=== PATIENT | male | born 1975 | race Caucasian/White ===

== ENCOUNTER 2022-11-09 18:34 | Emergency (ER) | payer OTHER ==
--- NOTE | 2022-11-09 18:59 | ER ---
Nurse's Notes [facility] Name: Chris Miranda Age: 47 yrs Sex: Male : 1975 Arrival Date: 11/09/2022 Time: 18:34 Bed 8 Private MD: Diagnosis: Other seizures Presentation: 11/09 18:35 Chief complaint: Patient states[facility] Associate sat him in a chair so he ll1 wouldn't fall. EMS states: FS 101. VSS. Postictal on scene. 20 G R hand. Coronavirus screen: Client denies travel out of the [place] in the last 14 days. At this time, the client does not indicate any symptoms associated with coronavirus-19. Ebola Screen: Patient denies travel to an Ebola-affected area in the 21 days before illness onset. Risk Assessment: Do you want to hurt yourself or someone else? Patient reports no desire to harm self or others. Onset of symptoms was November 09, 2022. 18:35 Method Of Arrival: EMS: [facility] ll1 18:35 Acuity: NUHA 3 ll1 Triage Assessment: 18:37 General: Appears in no apparent distress. Behavior is calm, cooperative, appropriate ll1 for age. Pain: Denies pain. Neuro: Reports seizure. Historical: - Allergies: 18:35 No Known Allergies; ll1 - Home Meds: 18:43 zonisamide 300 oral capsule 2 times per day [Active]; oxcarbazepine 300 mg oral tablet sc3 3 tabs TID [Active]; atorvastatin 10 mg oral tablet every evening [Active]; carvedilol 25 mg oral tablet 2 times per day [Active]; meloxicam 15 mg oral tablet once [Active]; - PMHx: 18:35 Seizure; ll1 - Immunization history:: Adult Immunizations up to date. - Social history:: Smoking status: Patient denies any tobacco usage or history of. Screenin:05 [facility] ED Fall Risk Assessment (Adult) History of falling in the last 3 months, sc3 including since admission No falls in past 3 months (0 pts) Confusion or Disorientation No (0 pts) Intoxicated or Sedated No (0 pts) Impaired Gait No (0 pts) Mobility Assist Device Used No (0 pt) Altered Elimination No (0 pt) Score/Fall Risk Level 0 - 2 = Low Risk. Abuse screen: Denies injuries from another. Nutritional screening: No deficits noted. Tuberculosis screening: No symptoms or risk factors identified. Assessment: 19:05 General: Appears in no apparent distress. Behavior is calm, cooperative, Smells of tx3 Reports. Pain: Denies pain. Neuro: Seizure activity reported prior to arrival. Cardiovascular: No deficits noted. Respiratory: No deficits noted. GI: No deficits noted. : No deficits noted. EENT: No deficits noted. Derm: No deficits noted. Musculoskeletal: No deficits noted. Vital Signs: 18:35 BP 141 / 90; Pulse 75; Resp 16 S; Temp 98.1(TE); Pulse Ox 98% on R/A; aa5 19:04 BP 140 / 89; Pulse 74; Resp 16; Temp 97.6; Pulse Ox 96% on R/A; Pain 0/10; sc3 19:04 Pain Scale: Adult [facility] [place], [place] ED Course: 18:35 Patient arrived in ED. sp3 18:35 Rosa Lebron MD is Attending Physician. sp3 18:35 Arm band placed on Patient placed in an exam room, on a stretcher. ll1 18:35 Patient has correct armband on for positive identification. Bed in low position. Call aa5 light in reach. Side rails up X2. Seizure precautions initiated. 18:37 Triage completed. ll1 18:38 Maintain EMS IV. Dressing intact. Good blood return noted. Site clean \T\ dry. Gauge \T\ aa 5 site: 20G R hand. 19:06 No provider procedures requiring assistance completed. IV discontinued. mb9 Administered Medications: No medications were administered Outcome: 18:58 Discharge ordered by . sp3 19:06 Discharged to home ambulatory, with friend. tx3 19:06 Condition: good 19:06 Discharge instructions given to patient, friend. 19:06 Condition: stable mb9 19:06 Patient left the ED. tx3 Signatures: Bronwyn Tao, RN RN aa5 Oly Zhao RN RN ll1 Rosa Lebron MD MD sp3 Monika Kirkland RN RN mb9 Rupesh Martínez RN RN tx3
--- NOTE | 2022-11-09 18:59 | EDPHYS ---
Physician Documentation [facility] Name: Chris Miranda Age: 47 yrs Sex: Male : 1975 Arrival Date: 11/09/2022 Time: 18:34 Bed 8 Private MD: ED Physician Rosa Lebron HPI: 11/09 18:51 This 47 yrs old Male presents to ER via EMS with complaints of seizure. sp3 18:51 47-year-old male with history of longstanding seizure disorder on multiple medications sp3 stable for many years now presents with a breakthrough seizure at [facility] just prior to arrival by EMS. Patient states that he occasionally gets the seizures and family member with him states that this is a normal pattern for when he does have a breakthrough seizure. There is no injury reported and as patient was having a seizure he was assessed by bystanders and gently brought to the floor and there was no traumatic injury. There is no laceration to the tongue. There is no incontinence or any other injuries. Both shoulders have full range of motion. Currently patient has no complaints including headache, neck pain, chest pain, shortness of breath, fever, URI symptoms, focal neurological deficits or any other ROS items. EMS confirms he was postictal when they arrived and he is slowly improved in route.. Historical: - Allergies: 18:35 No Known Allergies; ll1 - Home Meds: 18:43 zonisamide 300 oral capsule 2 times per day [Active]; oxcarbazepine 300 mg oral tablet sc3 3 tabs TID [Active]; atorvastatin 10 mg oral tablet every evening [Active]; carvedilol 25 mg oral tablet 2 times per day [Active]; meloxicam 15 mg oral tablet once [Active]; - PMHx: 18:35 Seizure; ll1 - Immunization history:: Adult Immunizations up to date. - Social history:: Smoking status: Patient denies any tobacco usage or history of. ROS: 18:53 Constitutional: Negative for fever, chills, and weight loss, Eyes: Negative for injury, sp3 pain, redness, and discharge, ENT: Negative for injury, pain, and discharge, Neck: Negative for injury, pain, and swelling, Cardiovascular: Negative for chest pain, palpitations, and edema, Respiratory: Negative for shortness of breath, cough, wheezing, and pleuritic chest pain, Abdomen/GI: Negative for abdominal pain, nausea, vomiting, diarrhea, and constipation, Back: Negative for injury and pain, MS/Extremity: Negative for injury and deformity, Skin: Negative for injury, rash, and discoloration, Psych: Negative for depression, anxiety, suicide ideation, homicidal ideation, and hallucinations, Allergy/Immunology: Negative for hives, rash, and allergies, Endocrine: Negative for neck swelling, polydipsia, polyuria, polyphagia, and marked weight changes. 18:53 All other systems are negative. Exam: 18:53 Constitutional: This is a well developed, well nourished patient who is awake, alert, sp3 and in no acute distress. Head/Face: Normocephalic, atraumatic. Eyes: Pupils equal round and reactive to light, extra-ocular motions intact. Lids and lashes normal. Conjunctiva and sclera are non-icteric and not injected. Cornea within normal limits. Periorbital areas with no swelling, redness, or edema. ENT: Nares patent. No nasal discharge, no septal abnormalities noted. External auditory canals are clear. Oropharynx with no redness, swelling, or masses, exudates, or evidence of obstruction, uvula midline. Mucous membranes moist. Neck: Trachea midline, no thyromegaly or masses palpated, and no cervical lymphadenopathy. Supple, full range of motion without nuchal rigidity, or vertebral point tenderness. No Meningismus. Chest/axilla: Normal chest wall appearance and motion. Nontender with no deformity. No lesions are appreciated. Cardiovascular: Regular rate and rhythm with a normal S1 and S2. No gallops, murmurs, or rubs. Normal PMI, no JVD. No pulse deficits. Respiratory: Lungs have equal breath sounds bilaterally, clear to auscultation and percussion. No rales, rhonchi or wheezes noted. No increased work of breathing, no retractions or nasal flaring. Abdomen/GI: Soft, non-tender, with normal bowel sounds. No distension or tympany. No guarding or rebound. No evidence of tenderness throughout. Back: No spinal tenderness. No costovertebral tenderness. Full range of motion. Skin: Warm, dry with normal turgor. Normal color with no rashes, no lesions, and no evidence of cellulitis. MS/ Extremity: Pulses equal, no cyanosis. Neurovascular intact. Full, normal range of motion. Neuro: Awake and alert, GCS 15, oriented to person, place, time, and situation. Cranial nerves II-XII grossly intact. Motor strength 5/5 in all extremities. Sensory grossly intact. Cerebellar exam normal. Normal gait. Psych: Awake, alert, with orientation to person, place and time. Behavior, mood, and affect are within normal limits. 18:53 Musculoskeletal/extremity: Old left clavicular deformity noted. No new abnormalities.. Vital Signs: 18:35 BP 141 / 90; Pulse 75; Resp 16 S; Temp 98.1(TE); Pulse Ox 98% on R/A; aa5 19:04 BP 140 / 89; Pulse 74; Resp 16; Temp 97.6; Pulse Ox 96% on R/A; Pain 0/10; sc3 19:04 Pain Scale: Adult sc3 MDM: 18:35 Patient medically screened. sp3 18:53 Data reviewed: vital signs, nurses notes, EMS record, lab test result(s). ED course: sp3 47-year-old male with longstanding seizure disorder with breakthrough seizure. Will assess with CBC and chemistry to ensure no electrolyte abnormality. We will also observe in the ED and safely discharge him once work-up is complete. I am not highly suspicious for infection, trauma, or any other significant pathology. CT scan of the head is not indicated at this time.. 18:57 ED course: Patient is politely declining labs at this time as this is a standard sp3 breakthrough seizure for him. He has had no further seizure activity here. He is alert and oriented with a normal neurological exam. We will safely discharge him home at this time.. 11/09 18:36 Order name: CBC with Diff sp3 11/09 18:36 Order name: Chem 7 sp3 11/09 18:36 Order name: Seizure Precautions; Complete Time: 18:40 sp3 Administered Medications: No medications were administered Disposition Summary: 11/09/22 18:58 Discharge Ordered Location: Home sp3 Condition: Stable sp3 Diagnosis - Other seizures sp3 Followup: sp3 - With: Private Physician - When: Upon discharge from the Emergency Department - Reason: Continuance of care Discharge Instructions: - Discharge Summary Sheet sp3 - Seizure, Adult sp3 Forms: - Medication Reconciliation Form sp3 - Thank You Letter sp3 - Antibiotic Education sp3 - Prescription Opioid Use sp3 Signatures: Dispatcher [employer] Oly Mcfadden RN RN ll1 Rosa Lebron MD MD sp3 Rupesh Martínez RN RN sc3
--- OUTSIDE RECORDS SUMMARY | 2022-11-09 19:02 | XMS REPORT | Continuity of Care Document ---
:1975 Author Organization [facility] t Address [address] [facility] [address] [place] [address] Care Team Providers Name Role Phone Padmini Danielson MD Primary Care Physician [phone] Joceline Linda Attending Clinician Unavailable Renato Bray Attending Clinician Unavailable Tere Beth Attending Clinician Unavailable KANDY ROTH Attending Clinician Unavailable Stephen Reid MD Attending Clinician PADMINI DANIELSON Attending Clinician Unavailable NIHARIKA SINGH Attending Clinician Unavailable ANEJL FELICIANO Attending Clinician Unavailable Padmini Danielson MD Attending Clinician [phone] STEPHEN REID Attending Clinician Unavailable STEPHEN REID Attending Clinician Unavailable Doctor Unassigned, [place] Attending Clinician Unavailable BRANDEE RUFFIN Attending Clinician Unavailable Payers Payer Name Policy Type Policy Number Effective Date Expiration Date S m[id number] 2021 CLASSIC NO PREMIUM 00:00:00 R2T Problems Condition Condition Condition Status Onset Resolution Last Treating Co mments Source Name Details Category Date Date Treatment Clinician Date Primary Primary Disease Active Desiree hypertensi hypertensi 5-04 Se ybold on on 00:00: 00 Seizure Seizure Disease Active Desiree disorder disorder 5-04 Seybol d (HCC) - (HCC) - 00:00: Unchanged Unchanged 00 Hyperlipid Hyperlipid Disease Active Marnie monzon 5-04 Seybold 00:00: 00 No known No known Disease Unive rs active active ity of problems problems [facility] Allergies, Adverse Reactions, Alerts Allergy Allergy Status Severity Reaction(s) Onset Inactive Treating Comm ents Source Name Type Date Date Clinician No Known DA Active U [facility] All[facility]ie 06-25 [facility] [place] NO KNOWN Drug Active Univers ALLERGIE Class ity of S [facility] Social History Social Habit Start Date Stop Date Quantity Comments Source Alcohol intake 2021-10-28 2021-10-28 Lifetime Desiree Sey bold 00:00:00 00:00:00 non-drinker (finding) Exposure to 2021-10-09 2021-10-19 Not sure University SARS-CoV-2 00:00:00 10:24:00 [facility] (event) Branch Tobacco use and 2019-08-02 2019-08-02 Smokeless tobacco Un iversity of exposure 00:00:00 00:00:00 non-user [facility] Sex Ass[birth year] At [birth year] Desiree parekh 00:00:00 00:00:00 Smoking Status Start Date Stop Date Source Never smoked tobacco Desriee Seyb old Medications Ordered Filled Start Stop Current Ordering Indication Dosage Frequency Signature Comments Components Source Medication Medication Date Date Medication? Clinician (SIG) Name Name Zonisamide Yes [id number] TAKE 3 Desiree 100 MG oral 6-02 CAPSULES Seyb old Capsule 00:00: BY MOUTH 00 TWICE A DAY Oxcarbazepi Yes [id number] Take 3 Desiree ne 300 MG 6-02 tablets by Seyb old oral Tablet 00:00: mouth 3 00 times daily Oxcarbazepi 2021- No Take 3 Alden sey ne 300 MG 5-31 06-02 tablets by Sey bold oral Tablet 00:00: 00:00 mouth 3 00 :00 times daily Zonisamide 2021- No TAKE 3 Tonya ey 100 MG oral 5-31 06-02 CAPSULES Sey bold Capsule 00:00: 00:00 BY MOUTH 00 :00 TWICE A DAY Zonisamide 2021-0 Yes TAKE 3 Kelse y 100 MG oral 4-16 CAPSULES Seyb old Capsule 00:00: BY MOUTH TWICE A DAY OXcarbazepi 2021-0 Yes [id number] Take 3 Univers ne 300 mg 4-15 tablets by ity of tablet 00:00: mouth [address] [place] [address] times Medical daily Branch zonisamide 2021-0 Yes [id number] TAKE 3 Univers 100 mg 4-15 CAPSULES ity of capsule 00:00: BY MOUTH [place] [address] TWICE A Medical DAY Branch OXcarbazepi 2021-0 Yes [id number] Take 3 Univers ne 300 mg 4-15 tablets by ity of tablet 00:00: mouth [address] [place] [address] Medical daily Branch zonisamide 2021-0 Yes [id number] TAKE 3 Univers 100 mg 4-15 CAPSULES ity of capsule 00:00: BY MOUTH [place] [address] TWICE A Medical DAY Branch OXcarbazepi 2021-0 Yes [id number] Take 3 Univers ne 300 mg 4-15 tablets by ity of tablet 00:00: mouth [address] [place] [address] Medical daily Branch zonisamide 2021-0 Yes [id number] TAKE 3 Univers 100 mg 4-15 CAPSULES ity of capsule 00:00: BY MOUTH [place] [address] TWICE A Medical DAY Branch OXcarbazepi 2021-0 Yes [id number] Take 3 Univers ne 300 mg 4-15 tablets by ity of tablet 00:00: mouth [address] [place] [address] Medical daily Branch zonisamide 2021-0 Yes [id number] TAKE 3 Univers 100 mg 4-15 CAPSULES ity of capsule 00:00: BY MOUTH [place] [address] TWICE A Medical DAY Branch Oxcarbazepi 2021-0 Yes Take 3 Tonya ey ne 300 MG 4-15 tablets by Seyb old oral Tablet 00:00: mouth 3 00 times daily Enalapril 0 Yes 10mg Take 10 mg Ke lsey Maleate 10 3-16 by mouth Seybo ld MG oral 00:00: daily FOR Tablet 00 HIGH BLOOD PRESSURE Enalapril 2021-0 Yes 10mg Take 10 mg Ke lsey Maleate 10 3-16 by mouth Seybo ld MG oral 00:00: daily FOR Tablet 00 HIGH BLOOD PRESSURE Carvedilol Yes 1{tbl} Take 1 Alden sey 25 MG oral 2-28 tablet by Seyb old Tablet 00:00: mouth in 00 the morning and 1 tablet in the evening. Carvedilol Yes 1{tbl} Take 1 Alden sey 25 MG oral 2-28 tablet by Seyb old Tablet 00:00: mouth in 00 the morning and 1 tablet in the evening. Meloxicam Yes 15mg Take 15 mg Ke lsey 15 MG oral 2-21 by mouth Seybo ld Tablet 00:00: daily 00 Meloxicam Yes 15mg Take 15 mg Ke lsey 15 MG oral 2-21 by mouth Seybo ld Tablet 00:00: daily 00 Atorvastati Yes 10mg Take 10 mg Desiree n Calcium 2-14 by mouth Seybol d 10 MG oral 00:00: every Tablet 00 evening Atorvastati Yes 10mg Take 10 mg Desiree n Calcium 2-14 by mouth Seybol d 10 MG oral 00:00: every Tablet 00 evening carvedilol Yes TAKE 1 Unive rs 25 mg 9-25 TABLET BY ity of tablet 00:00: MOUTH TWICE A Medical DAY Branch carvedilol Yes TAKE 1 Unive rs 25 mg 9-25 TABLET BY ity of tablet 00:00: MOUTH TWICE A Medical DAY Branch carvedilol Yes TAKE 1 Unive rs 25 mg 9-25 TABLET BY ity of tablet 00:00: MOUTH TWICE A Medical DAY Branch carvedilol Yes TAKE 1 Unive rs 25 mg 9-25 TABLET BY ity of tablet 00:00: MOUTH TWICE A Medical DAY Branch atorvastati Yes TAKE 1 Univ ers n 10 mg 8-31 TABLET BY ity of tablet 00:00: MOUTH IN THE Medical EVENING Branch atorvastati Yes TAKE 1 Univ ers n 10 mg 8-31 TABLET BY ity of tablet 00:00: MOUTH IN [place] THE Medical EVENING Branch atorvastati Yes TAKE 1 Univ ers n 10 mg 8-31 TABLET BY ity of tablet 00:00: MOUTH IN [place] THE Medical EVENING Branch atorvastati 2018-0 Yes TAKE 1 Univ ers n 10 mg 8-31 TABLET BY ity of tablet 00:00: MOUTH IN [place] 00 THE Medical [facility] Branch meloxicam 2017-0 Yes TAKE 1/2 Univ ers 15 mg 8-24 TO 1 ity of tablet 00:00: TABLET BY [place] 00 MOUTH Medical NEEDED FOR Branch PAIN (WITH FOOD) ONCE DAILY meloxicam 2017-0 Yes TAKE 1/2 Univ ers 15 mg 8-24 TO 1 ity of tablet 00:00: TABLET BY [place] 00 MOUTH Medical NEEDED FOR Branch PAIN (WITH FOOD) ONCE DAILY meloxicam 2017-0 Yes TAKE 1/2 Univ ers 15 mg 8-24 TO 1 ity of tablet 00:00: TABLET BY [place] 00 MOUTH Medical NEEDED FOR Branch PAIN (WITH FOOD) ONCE DAILY meloxicam 2017-0 Yes TAKE 1/2 Univ ers 15 mg 8-24 TO 1 ity of tablet 00:00: TABLET BY [place] 00 MOUTH Medical NEEDED FOR Branch PAIN (WITH FOOD) ONCE DAILY Immunizations Ordered Filled Immunization Date Status Comments [facility] Immunization Name Name SARS-COV-2 COVID-19 2020-10-07 Completed Unive rsity of PFIZER VACCINE 00:00:00 [facility] SARS-COV-2 COVID-19 2020-10-07 Completed Unive rsity of PFIZER VACCINE 00:00:00 [facility] SARS-COV-2 COVID-19 2020-10-07 Completed Unive rsity of PFIZER VACCINE 00:00:00 [facility] SARS-COV-2 COVID-19 2020-10-07 Completed Unive rsity of PFIZER VACCINE 00:00:00 [facility] SARS-COV-2 COVID-19 2020-09-16 Completed Unive rsity of PFIZER VACCINE 00:00:00 [facility] SARS-COV-2 COVID-19 2020-09-16 Completed Unive rsity of PFIZER VACCINE 00:00:00 [facility] SARS-COV-2 COVID-19 2020-09-16 Completed Unive rsity of PFIZER VACCINE 00:00:00 [facility] SARS-COV-2 COVID-19 2020-09-16 Completed Unive rsity of PFIZER VACCINE 00:00:00 [facility] Vital Signs Vital Name Observation Time Observation Value Comments Source Systolic blood pressure 2021-10-28 20:16:00 120 mm[Hg] Desiree Seybold Diastolic blood 2021-10-28 20:16:00 68 mm[Hg] Kelse y Seybold pressure Heart rate 2021-10-28 20:16:00 79 /min Desiree Patel eybold Body temperature 2021-10-28 20:16:00 36.89 Stephanie Tonya ey Seybold Respiratory rate 2021-10-28 20:16:00 16 /min Tonya ey Seybold Body height 2021-10-28 20:16:00 185.4 cm Desiree mcculloughbold Body weight 2021-10-28 20:16:00 107.049 kg Desiree Patel eybold BMI 2021-10-28 20:16:00 31.14 kg/m2 Desiree S eybold Systolic blood pressure 2021-09-29 16:08:00 124 mm[Hg] Desiree Seybold Diastolic blood 2021-09-29 16:08:00 72 mm[Hg] Kelse y Seybold pressure Heart rate 2021-09-29 16:08:00 59 /min Desiree Patel eyboellen Body temperature 2021-09-29 16:08:00 36.56 Stephanie Tonya ey Seybold Respiratory rate 2021-09-29 16:08:00 14 /min Tonya mccullough Seybdiana Body height 2021-09-29 16:08:00 185.4 cm Desiree mcculloughboellen Body weight 2021-09-29 16:08:00 106.777 kg Desiree mcculloughbold BMI 2021-09-29 16:08:00 31.06 kg/m2 Desiree mcculloughbold Procedures This patient has no known procedures. Encounters Start End Encounter Admission Attending Care Care Encounter Source Date/Time Date/Time Type Type Clinicians Facility Department ID 2022-05-[address] [facility] [id number] Common 07:22:00 Joceline [id number] [facility] 2022-01-[address] [facility] [id number] Common 09:38:00 Joceline [id number] [facility] 2022-01-[address] [facility] [id number] Common 14:00:00 Joceline [facility] 2022-01-21 Outpatient [place], STLMLC STLMLC [id number] Common 09:45:00 Joceline [facility] 2022-01-20 Outpatient [place], STLMLC STLMLC [id number] Common 15:21:00 Joceline [facility] 2022-01-19 Outpatient [place], STLMLC STLMLC [id number] Common 08:10:00 Joceline [facility] 2021-06-23 Outpatient [place], STLMLC STLMLC [id number] Common 13:43:01 Joceline [facility] 2021-06-23 Outpatient [place], STLMLC STLMLC [id number] Common 12:36:56 Joceline 38127 [facility] 2021-06-23 Outpatient [place], STLMLC STLMLC [id number] Common 12:34:48 Joceline [id number] [facility] 2021-06-23 Outpatient STLMLC STLMLC [id number] Common 12:15:38 [id number] [facility] 2021-06-23 Outpatient Asa Kin STLMLC STLMLC [id number] Common 12:03:09 [id number] [facility] 2021-06-23 Outpatient Renato Bray STLMLC STLMLC [id number] Common 11:59:12 14119 [facility] 2021-06-23 Outpatient [place], STLMLC STLMLC [id number] Common 11:57:31 Tere 11436 [facility] 2021-06-23 Outpatient [place], STLMLC STLMLC [id number] Common 11:18:31 Tere 43940 [facility] 2021-06-23 Outpatient [place], STLMLC STLMLC [id number] Common 11:17:59 Tere 54130 [facility] 2022-11-15 2022-11-15 Outpatient DESIREE ROTH [id number] Desiree 11:30:00 11:30:00 KANDY monahan 2022-11-08 2022-11-08 [facility] 1.2.840.114 [id number] Univers 00:00:00 00:00:00 [facility] [id number] ity of [place] [id number] Christopher as DORA?BLEA [id number] [address] 2022-11-07 2022-11-07 [facility] 1.2.840.114 [id number] Univers 00:00:00 00:00:00 [facility] [id number] ity of [place] [id number] Christopher as DORA?BLEA [id number] [address] 2022-11-05 2022-11-05 Outpatient DESIREE DANIELSON [id number] Desiree 00:00:00 00:00:00 PADMINI monahan 2022-11-05 2022-11-05 Outpatient DESIREE DANIELSON [id number] Desiree 00:00:00 00:00:00 PADMINI monahan 2022-11-03 2022-11-03 [facility] [id number] Univers 00:00:00 00:00:00 [facility] [id number] ity of [place] [id number] Christopher as DORA?BLEA [id number] [address] 2022-11-02 2022-11-02 Outpatient DESIREE DANIELSON [id number] Desiree 00:00:00 00:00:00 PADMINI monahan 2022-09-16 2022-09-16 Outpatient DESIREE DANIELSON [id number] Desiree 00:00:00 00:00:00 PADMINI Solool taniya 2022-03-16 2022-03-16 Outpatient Wallace [facility] [id number] Univers 11:20:00 11:20:00 NIHARIKA dietrich [facility] 2022-02-21 2022-02-21 Outpatient DESIREE ROTH [id number] Desiree 00:00:00 00:00:00 KANDY Seybol d 2022-02-04 2022-02-04 Outpatient DESIREE ROTH [id number] Desiree 13:30:00 13:30:00 KANDY Seybol d 2022-01-28 2022-01-28 Outpatient DESIREE ROTH [id number] Desiree 00:00:00 00:00:00 KANDY Seybol d 2021-11-22 2021-11-22 Outpatient DESIREE FELCIIANO [id number] Desiree 15:40:00 15:40:00 ANJEL Seybol d 2021-11-19 2021-11-19 Outpatient DESIREE DANIELSON [id number] Desiree 14:45:00 14:45:00 PADMINI Seybol d 2021-11-18 2021-11-18 Outpatient DESIREE DANIELSON [id number] Desiree 00:00:00 00:00:00 PADMINI Seybol d 2021-11-02 2021-11-02 Outpatient DESIREE DANIELSON [id number] Desiree 00:00:00 00:00:00 PADMINI Seybol d 2021-11-02 2021-11-02 Outpatient DESIREE DANIELSON [id number] Desiree 00:00:00 00:00:00 PADMINI Seybol d 2021-10-28 2021-10-28 Office Randall Danielson 1.2.840.114 [id number] Desiree 15:15:00 15:45:00 Visit Padmini Timmons [id number] Se izabella Gonzalez 1.2.7.2.686 [id number] 2021-10-26 2021-10-26 Telephone SYEDA Reid 1.2.840.114 [id number] [facility] 00:00:00 00:00:00 [facility] [id number] itlashonda german [place] [id number] Christopher as DORA?BLEA [id number] [address] OFFICE BUILDING 2021-10-26 2021-10-26 Telephone [place] [facility] 1.2.840.114 [id number] Univers 00:00:00 00:00:00 [facility] [id number] [facility] [id number] Christopher as DORA?BLEA [id number] [address] OFFICE [facility] 2021-10-26 2021-10-26 Refill [place] [facility] 1.2.840.114 [id number] Univers 00:00:00 00:00:00 [facility] [id number] [facility] [id number] Christopher as DORA?BLEA [id number] [address] OFFICE [facility] 2021-10-24 2021-10-24 Reftheresa Reid [facility] 1.2.840.114 [id number] Univers 00:00:00 00:00:00 [facility] [id number] ity of [place] [id number] Christopher as DORA?BLEA [id number] [address] OFFICE [facility] 2021-10-19 2021-10-19 Outpatient STEPHEN MENDOZA [facility] [id number] Univers 10:40:00 10:40:00 STEPHEN REID [facility] 2021-10-19 2021-10-19 Outpatient STEPHEN MENDOZA [facility] [id number] Univers 10:40:00 10:40:00 STEPHEN REID [facility] 2021-10-19 2021-10-19 Outpatient DESIREE DANIELSON [id number] Desiree 00:00:00 00:00:00 PADMINI monahan 2021-10-18 2021-10-18 Outpatient DESIREE DANIELSON [id number] Desiree 00:00:00 00:00:00 PADMINI monahan 2021-10-14 2021-10-14 Telephone [place] [facility] 1.2.840.114 [id number] Univers 00:00:00 00:00:00 [facility] [id number] ity of [place] [id number] Christopher as DORA?BLEA [id number] [address] OFFICE [facility] 2021-10-14 2021-10-14 Telephone [place] [facility] 1.2.840.114 [id number] Univers 00:00:00 00:00:00 [facility] [id number] ity of [place] [id number] Christopher as DORA?BLEA [id number] [address] OFFICE [facility] 2021-10-08 2021-10-08 Outpatient R STEPHEN REID [facility] [id number] [facility] 09:20:00 09:20:00 STEPHEN REID itlashonda [facility] 2021-10-07 2021-10-07 Outpatient DESIREE DANIELSON [id number] Desiree 00:00:00 00:00:00 PADMINI monahan 2021-10-06 2021-10-06 Orders Doctor NISHI 1.2.840.114 [id number] 00:00:00 00:00:00 Only Unassigned, SAMINA [id number] [facility] 4.2.7.2.686 Christopher as [id number] [address] 2021-10-05 2021-10-05 Outpatient DESIREE DANIELSON [id number] Desiree 00:00:00 00:00:00 PADMINI monahan 2021-10-05 2021-10-05 Telephone [place] [facility] 1.2.840.114 [id number] [facility] 00:00:00 00:00:00 [facility] [id number] ity of [place] 4.2.7.2.686 Christopher as DORA?BLEA [phone] [address] OFFICE [facility] 2021-09-29 2021-09-29 Office Randall Danielson 1.2.840.114 [id number] Desiree 11:00:00 11:30:00 Visit Padmini Timmons [id number] Se izabella Gonzalez 1.2.7.2.686 [id number] 2021-09-27 2021-09-27 Office [place] [facility] 1.2.840.114 [id number] Univers 11:00:00 11:20:00 Visit [facility] [id number] ity of [place] 4.2.7.2.686 Christopher as DORA?BLEA [id number] [address] 2021-09-27 2021-09-27 Outpatient STEPHEN MENDOZA [facility] [id number] Univers 11:00:00 11:00:00 STEPHEN REID [facility] 2021-09-27 2021-09-27 Outpatient STEPHEN MENDOZA [facility] [id number] Univers 11:00:00 11:00:00 STEPHEN REID [facility] 2021-09-27 2021-09-27 [facility] 1.2.840.114 [id number] Univers 00:00:00 00:00:00 [facility] [id number] [facility] [id number] Christopher as DORA?BLEA [id number] [address] 2021-09-22 2021-09-22 [facility] [place] 1.2.840.114 [id number] Univers 00:00:00 00:00:00 [facility] [id number] ity of [place] [id number] Christopher as DORA?BLEA [id number] [address] 2021-09-20 2021-09-20 [facility] 1.2.840.114 [id number] Univers 00:00:00 00:00:00 [facility] [id number] ity of [place] 4.2.7.2.686 Christopher as DORA?BLEA [id number] [address] 2021-09-19 2021-09-19 [facility] 1.2.840.114 [id number] Univers 00:00:00 00:00:00 Stephen GRANT [id number] it[place] of [place].2.[place] [id number] [address] 2021-09-10 2021-09-10 [facility] 1.2.840.114 [id number] Univers 00:00:00 00:00:00 Stephen Mackay [facility] [id number] [facility] 4.2.7.2.686 Christopher as DORA?BLEA [id number] [address] 2021-09-10 2021-09-10 [facility] 1.2.840.114 [id number] Univers 00:00:00 00:00:00 Stephen GRANT [id number] ity of [facility] 4.2.7.2.686 [place] [id number] [address] 2021-06-28 2021-06-28 [facility] 1.2.840.114 [id number] Univers 00:00:00 00:00:00 Stephen GRANT [id number] ity of [place] 4.2.7.2.686 [place] [id number] [address] 2021-06-28 2021-06-28 [facility] 1.2.840.114 [id number] Univers 00:00:00 00:00:00 Stephen Mackay [facility] [id number] ity of [place] 4.2.7.2.686 Christopher as DORA?BLEA [id number] [address] 2021-03-12 2021-03-12 [facility] 1.2.840.114 [id number] Univers 00:00:00 00:00:00 Stephen Grant [id number] ity of [place] 4.2.7.2.[place] [id number] [address] 2020-10-07 2020-10-07 Outpatient Wallace RUFFIN [facility] [id number] Univers 08:10:00 08:10:00 BRANDEE [facility] 2020-09-16 2020-09-16 Outpatient Wallace RUFFIN [facility] [id number] Univers 08:10:00 08:10:00 BRANDEE lashonda [facility] 2020-08-03 2020-08-03 Outpatient STEPHEN MENDOZA [facility] [id number] Univers 14:20:00 14:20:00 STEPHEN REID lashonda [facility] 2019-08-02 2019-08-02 Outpatient STEPHEN MENDOZA [facility] [id number] Univers 09:40:00 09:40:00 STEPHEN REID [facility] Results Test Description Test Time Test Comments Results Result [facility] e Comments - XR PELVIS /2018-07-03 Patient Name: VIEWS 11:04:00 CHRIS MIRANDA Unit No: [id number] EXAMS: CPT CODE: [id number] XR PELVIS 1/2 VIEWS 41142 AP PORTABLE RIGHT HIP COMMENT: The patient is status post joint placement which is articulating normally. at 1104 Reported and signed by: Tyler Alvarado MD CC: Xiomara Lebron MD Technologist: ASAD MATA (RT.R) Transcribed D/ (1104) tTHOMASL [facility] NAME: CHRIS MIRANDA [address] [facility] PHYS: IFDEL.Xioamra Jhaveri : 1975 AGE: 43 SEX: M [place], [place] [address] LOC: Y.320 A PHONE #: [phone] EXAM DATE: 07/02/2018 STATUS: ADM IN FAX #: [phone] RAD #: D/C DT PAGE 1 Signed Report Patient Name: CHRIS MIRANDA Unit No: [id number] EXAMS: CPT CODE: [id number] XR PELVIS 1/2 VIEWS 67896 (Continued) Orig Print D/T: S: 07/03/2018 (1108) [facility] NAME: CHRIS MIRANDA [address] [facility] Main PHYS: [id number] - LebronXiomara mcnair Juan : 1975 AGE: 43 SEX: M [place], [place] [address] LOC: Y.320 A PHONE #: [phone] EXAM DATE: 07/02/2018 STATUS: ADM IN FAX #: [phone] RAD #: D/C DT PAGE 2 Signed Report BASIC METABOLIC PANEL 2018-07-03 06:27:00 Test Item Value Reference Range Interpretation Comme nts SODIUM (test code = NA) 145 mmol/L 136-145 N POTASSIUM (test code = K) 4.8 mmol/L 3.5-5.1 N CHLORIDE (test code = CL) 109.0 mmol/L 98-107 H CARBON DIOXIDE (test code = 24.8 mmol/L 21-32 N CO2) GLUCOSE (test code = GLU) 108 mg/dL 70-110 N BLOOD UREA NITROGEN (test code 23 mg/dL 7-18 H = BUN) GLOMERULAR FILTRATION RATE 60.2 >60 U nit of measure: mL/min/1.73 (test code = GFR) [id number] Range:Healthy Adults >90 mL/m in/1.73 m2 For Chronic Kidney Disease: Stage II Mild D ecrease in GFR 60-90 Stage III Moderate Decrease in GFR 30-59 Stage IV Severe Decre ase in GFR 15-29 Stage V K idney Failure <15 CREATININE (test code = CREAT) 1.29 mg/dL 0.55-1.30 N CALCIUM (test code = CA) 8.3 mg/dL 8.2-10.1 N HGB [id number] 06:00:00 Test Item Value Reference Range Interpretation Comments HEMOGLOBIN (test code = HGB) 14.6 g/dL 12-16 N HEMATOCRIT (test code = HCT) 44.2 % 37-47 N GLYCOSYLATED HEMOGLOBIN (HA1C)2018-06-25 22:44:00 Test Item Value Reference Range Interpretation Comments GLYCOSYLATED 4.9 % 4.8-5.9 N Any condition t hat shortens HEMOGLOBIN (HA1C) erythocyte survival or (test code = GLYHGB) decreas esmean erythrocyte age (e.g., donna very from acute blood los s,hemolytic anemai) will fa lsely lower HGBA1c resultsr egardless of the method used . HGBA1c results frompat ients with HbSS, HbCC and HbSc must be interpreted wit hcaution given the patho logical processes, incl uding anemia,increase d red cell turnover, trans fusion requirements, t hatadversely impact HGBA1c a s a marker of long-term glycemiccontrol . Alternative for ms of testing such as fructosaminesho uld be considered for these patients.DONE A T: [facility] [facility] [address] [facility], [place], [place] [address] GLYCOSYLATED HEMOGLOBIN [id number] 21:01:00 Test Item Value Reference Range Interpretation Comments GLYCOSYLATED 4.9 % 4.8-5.9 N Any condition t hat HEMOGLOBIN (HA1C) shortens e rythocyte (test code = GLYHGB) surviva l or decreasesmean erythrocyte age (e.g., recovery from a cute blood loss,hemolytic anemia) will falsely lo wer HGBA1c resultsregardle ss of the method used. HG BA1c results from pa melissaswith HbSS, HbCC, and HbSc must be interpreted with cautiongiven th e pathological pr ocesses, including anemia,increase d red cell turnover, trans fusion requirements, thatadversely i mpact HGBA1c as a mar ker of long-term glycemiccontrol . Alternative for ms of testing such as fructosaminesho uld be considered for these patients. MEAN BLOOD GLUCOSE 94 MG/DL 70-110 N (test code = MBG) URINALYSIS [id number] 17:54:00 Test Item Value Reference Range Interpretation Comments UA COLOR (test code = COLU) YELLOW YELLOW UA APPEARANCE (test code = APPU) CLEAR CLEAR UA GLUCOSE DIPSTICK (test code = NEGATIVE NEGATIVE DGLUU) UA BILIRUBIN DIPSTICK (test code = NEG NEGATIVE BILU) UA KETONE DIPSTICK (test code = NEG mg/dL NEGATIVE KETU) UA SPECIFIC GRAVITY (test code = 1.025 1.003-1.035 SGU) UA BLOOD DIPSTICK (test code = KIRSTIE) NEG NEGATIVE UA PH DIPSTICK (test code = GUERO) 6.0 >6.5 UA PROTEIN DIPSTICK (test code = NEG mg/dL NEG PROU) UA UROBILINIOGEN DIPSTICK (test 0.2 mg/dL NORM code = URO) UA NITRITE DIPSTICK (test code = NEG NEG GANGA) UA LEUKOCYTE ESTERASE DIPSTICK NEG NEGATIVE (test code = LEUU) UA WBC (test code = WBCU) 0-2 /HPF 0-2 UA RBC (test code = RBCU) 0-2 /HPF 0-2 UA EPITHELIAL CELLS (test code = RARE /HPF 0-2 EPIU) UA BACTERIA (test code = BACU) FEW /HPF NONE COMPREHENSIVE METABOLIC [id number] 15:16:00 Test Item Value Reference Range Interpretation Comments SODIUM (test code = 144 mmol/L 136-145 N NA) POTASSIUM (test code = 4.3 mmol/L 3.5-5.1 N K) CHLORIDE (test code = 109.0 mmol/L 98-107 H CL) CARBON DIOXIDE (test 22.6 mmol/L 21-32 N code = CO2) GLUCOSE (test code = 88 mg/dL 70-110 N GLU) BLOOD UREA NITROGEN 22 mg/dL 7-18 H (test code = BUN) GLOMERULAR FILTRATION 72.4 >60 Unit o f measure: RATE (test code = GFR) mL/mi n/1.73 [id number] Range:Healthy Adults >90 mL/min/1.73 m2 For Chronic Kidney Disease: Stage II Mild Decrease i n GFR 60-90 Stage III Moderate Decrea se in GFR 30-59 St age IV Severe Decre ase in GFR 15-29 St age V Kidney Failur e <15 CREATININE (test code 1.10 mg/dL 0.55-1.30 N = CREAT) TOTAL PROTEIN (test 7.2 g/dL 6.4-8.2 N code = PROT) ALBUMIN (test code = 4.2 g/dL 3.4-5.0 N ALB) GLOBULIN (test code = 3.0 g/dL 2.2-4.2 N GLOB) ALBUMIN/GLOBULIN RATIO 1.4 0.7-2.0 N (test code = A/G) CALCIUM (test code = 8.8 mg/dL 8.2-10.1 N CA) BILIRUBIN TOTAL (test 0.37 mg/dL 0.2-1.00 N code = BILT) SGOT/AST (test code = 18.0 U/L 15-37 N AST) SGPT/ALT (test code = 35.0 U/L 12-78 N Please note new ALT) normal range. ALKALINE PHOSPHATASE 100 U/L 46-116 N TOTAL (test code = ALKP) GLYCOSYLATED HEMOGLOBIN (HA1C)2018-06-25 15:16:00 Test Item Value Reference Range Interpretation Comments GLYCOSYLATED HEMOGLOBIN (HA1C) (test % 4.8-5.9 code = GLYHGB) PROTHROMBIN [id number] 12:37:00 Test Item Value Reference Range Interpretation Comments PROTHROMBIN TIME 12.4 secs 10.1-12.5 N PATIENT (test code = PTP) INTERNATIONAL NORMAL 1.10 <2.0 RECOMME NDED THERAPEUTIC RATIO (test code = RANGE FOR ORAL INR) ANTICOAGULANTTR EATMENT: CONDITION INRPr ophylaxis of venous throm bosis in 2.0 - 3.0 high- risk medical or surg ical patientsTreatme nt of venous thrombos is 2.0 - 3.0Prevention o f embolism 2.0 - 3.0Prevention o f recurrent embol ism, or 3.0 - 4.5 patie nts with mechanical pros thetic intravascular v nevarez IS PATIENT ON ANTICOAGULANTS ? [facility] been notified if Patient is on Heparin Drip? NOTHROMBOPLASTIN TIME [id number] 12:37:00 Test Item Value Reference Range Interpretation Comments PTT ACTIVATED (test code = APTT) 28.6 secs 24.9-37.0 N IS PATIENT ON ANTICOAGULANTS ? [facility] been notified if Patient is on Heparin Drip? NOCBC W/AUTO [id number] 12:20:00 Test Item Value Reference Range Interpretation Comments WHITE BLOOD CELL (test code = WBC) 6.6 K/mm3 5.7-10.5 N RED BLOOD CELL (test code = RBC) 5.27 M/mm3 4.2-5.4 N HEMOGLOBIN (test code = HGB) 16.4 g/dL 12-16 H HEMATOCRIT (test code = HCT) 49.1 % 37-47 H MEAN CELL VOLUME (test code = MCV) 93 fL 80-98 N MEAN CELL HGB (test code = MCH) 31.1 pg 27-34 N MEAN CELL HGB CONCENTRATION (test 33.4 g/dL 30.8-34.1 N code = MCHC) RED CELL DISTRIBUTION WIDTH (test 13.3 % 11-16 N code = RDW) PLT (test code = PLT) 155 K/mm3 130-400 N MEAN PLATELET VOLUME (test code = 11.4 fL 8.9-12.1 N MPV) NEUTROPHIL % (test code = NT%) 64.8 % 45-70 N LYMPHOCYTE % (test code = LY%) 22.3 % 20-40 N MONOCYTE % (test code = MO%) 9.0 % 3-10 N EOSINOPHIL % (test code = EO%) 2.7 % 1-5 N BASOPHIL % (test code = BA%) 0.6 % 0.0-1.1 N NEUTROPHIL # (test code = NT#) 4.24 K/mm3 2.00-7.50 N LYMPHOCYTE # (test code = LY#) 1.46 K/mm3 1.50-4.00 L MONOCYTE # (test code = MO#) 0.59 K/mm3 0.2-0.8 N EOSINOPHIL # (test code = EO#) 0.18 K/mm3 0.04-0.4 N BASOPHIL # (test code = BA#) 0.04 K/mm3 0.02-0.10 N MANUAL DIFF REQUIRED (test code = NO MANUAL DIFF MDIFF) NUCLEATED RED BLOOD CELL (test 0 % 0-0 N code = NRBC) Notes Date/Time Note Provider Source 2018-08-05 12:04:00-00:00 [facility] ([facility]) Discharge Summary REPORT#:[id number] REPORT STATUS: Signed DATE:08/05/18 TIME: 1204 PATIENT: CHRIS MIRANDA UNIT #: [id number] [facility] AGE: 43 SEX: M ATTEND: Xiomara Lebron MD ADM AUTHOR: Xiomara Lebron MD * ALL edits or amendments must be made on the el ectronic/computer document * PCP PCP Discharge to: home General Information Date of discharge: 07/03/18 Hospital course: Discharge Diagnosis: Right Hip Degenerative Dise ase Procedure: Right Hip Arthroplasty Hospital Course and Findings The patient underwent the pr ocedure without incident. Findings were significant for degenerative disease of the hip. The patient was hemodynamically and medically monitored during the postoperative per iod. Anticoagulation was instituted for postoperative DVT prophylaxis. Th e patient was progressively able to tolerate PO pain med ications and the appropriate diet. Physical therapy was instituted, with a progressive ability to am bulate and perform exercises. The patient was eventually deemed stable and saf e for discharge. At discharge, the patient was comfortabl e, with a controlled pain level. There were no chest or abdominal symptoms present. Dis charge physical examination demonstrated stable vital signs and no acute dis tress. The patient had an intact wound with no signifi cant drainage, and no calf tenderness and a negative Emilie s sign bilaterally. There were no neurolog ic or vascular deficits or changes from the preoperative state. Disposition: Discharged to home Discharge Condition: Stable Instructions: Instruction sheet given to patient Activity: Ambulate with assistance, with weight- bearing as instructed in the hospital. Weight bearing limitations wer e reviewed with the patient during the hospitalization. The Patient was supplied with a walker to help with impaired ambulation during surgical recovery. Diet: As per preoperatively Prescriptions 1. Pain Medications: As per discharge prescription, with progressive weaning as pain decreases 2. Anticoagulation: As per discharge prescription, or PreOp anticoa gulant, as discussed with patient Follow-up Appointment: Patient instructe d to arrange appointment for an office visit in 2 weeks Med Rec Med Rec Discharge meds: Stop taking the following medications: MELOXICAM (MOBIC) 15 MG TAB ORAL DAILY. Continue taking these medications: CARVEDILOL (COREG) 25 MG TAB 25 MILLIGRAM ORAL TWICE DAILY WITH MEALS. ATORVASTATIN (LIPITOR) 10 MG TAB 10 MILLIGRAM ORAL BEDTIME. ZONISAMIDE (ZONEGRAN) 100 MG CAP 300 MILLIGRAM ORAL TWICE DAILY. Qty = 3 Instructions: takes 3 100mg capsules bid OXcarbazepine (TRILEPTAL) 300 MG TAB 300 MILLIGRAM ORAL THREE TIMES A DAY. Qty = 3 Instructions: Takes 3 300 mg tablets tid Start taking the following new medications: ASPIRIN EC (ECOTRIN) 81 MG TAB.EC 81 MILLIGRAM ORAL TWICE DAILY AT 8 AM AND 8 PM. Qty = 60 No Refills CEFADROXIL (DURICEF) 500 MG CAP 500 MILLIGRAM ORAL EVERY 12 HOURS. Qty = 14 No Refills MELOXICAM (MOBIC) 7.5 MG TAB 7.5 MILLIGRAM ORAL TWICE DAILY. Qty = 60 No Refills HYDROcodone/APAP (NORCO 10/325) 1 TAB TAB 1 TABLET ORAL EVERY 4 HOURS NEEDED. as neede d for PAIN SCALE 7-10 Qty = 42 No Refills METHOCARBAMOL (ROBAXIN) 500 MG TAB 500 MILLIGRAM ORAL FOUR TIMES DAILY NEEDED. as needed for MUSCLE SPASMS Qty = 90 Refills = 1 traMADol (ULTRAM) 50 MG TAB 50 MILLIGRAM ORAL EVERY 6 HOURS NEEDED. as n eeded for PAIN SCALE 4-6 Qty = 90 Refills = 1 Discharge Instructions Wound/dressing care: Keep wound clean an d dry, FOLLOW DR. LEBRON'S INSTRUCTIONS Equipment/supplies: Walker Follow-up Appointments Attending Physician: Attending Physician: Xiomara Lebron MD Follow up: In 1-2 weeks at 1205 RPT #:[id number] END OF REPORT 2018-07-03 08:28:00-00:00 [facility] ([facility]) Clinical Note REPORT#:[id number] REPORT STATUS: Signed DATE:07/03/18 TIME: 827 PATIENT: CHRIS MIRANDA UNIT #: [id number] ROOM/BED: [address] : [birth year] AGE: 43 SEX: M ATTEND: Xiomara Lebron MD ADM AUTHOR: Sctot Perez MD * ALL edits or amendments must be made on the el [employer]/computer document * Clinical Note Note: [facility] Scott newsome M.D. (cell text [phone]) Assessment/Plan 1.) Anemia of acute blood loss- .Hgb 14.6, asymp tomatic. 2.) S/p Right AHR- .acute pain control. Anticoag ulation as per Dr. Lebron. 3.) Hypertension- .follow BP and hold Rxs if SBP <120. 4.) Seizure Disorder Hyperlipidemia- .continue o n Rx. * OK for DISCHARGE per Internal Medicine - once cleared by PT. Prior Events/Overnight: Uneventful. Chief Complaint: No significant complaints. Objective Vital Signs Date Temp Pulse Resp B/P B/P Mean Pulse Ox FiO2 07/02-07/03 96.8-98.6 58-88 12-18 105-156/59-92 86.8-106 97-100 32 Gen: Alert, oriented, in mild discomfort Neck: No Masses, No Thyromegaly- CV: Regular Rate Rhythm / Edema- no significant Resp: Clear To Ascultation / Normal Respiratory Effort ABD: NonTender / NonDistended MS/Skin: No Cyanosis / No no dules / +Ankle DF/PF / nl capillary refill of toes. Other: thigh soft, dressing dry Labs/X-ray: Laboratory Tests: 07/03 427 Chemistry Sodium (136 - 145 mmol/L) 145 Potassium (3.5 - 5.1 mmol/L) 4.8 Chloride (98 - 107 mmol/L) 109.0 H Carbon Dioxide (21 - 32 mmol/L) 24.8 BUN (7 - 18 mg/dL) 23 H Creatinine (0.55 - 1.30 mg/dL) 1.29 Glomerular Filtr Rate (>60) 60.2 Glucose (70 - 110 mg/dL) 108 Calcium (8.2 - 10.1 mg/dL) 8.3 Hematology Hgb (12 - 16 g/dL) 14.6 Hct (37 - 47 %) 44.2 Scott Patterson M.D. at 0843 RPT #:[id number] END OF REPORT 2018-07-02 17:36:00-00:00 [facility] ([facility]) Clinical Note REPORT#:[id number] REPORT STATUS: Signed DATE:07/02/18 TIME: 1735 PATIENT: CHRIS MIRANDA UNIT #: [id number] ROOM/BED: [address] : 71 AGE: 43 SEX: M ATTEND: Xiomara Lebron MD ADM AUTHOR: Scott Perez MD * ALL edits or amendments must be made on the [place]/computer document * Clinical Note Note: [facility] Scott newsome MD (cell text [phone]) Internal Medicine Consult at request of : Dr Vanessa Streeter Chief Complaint: Right hip pain HPI: 43 yo M with now s/p Right anterior total h ip replacement (AHR) by Dr. Lebron. Mr. Miranda relates y ears of progressive Right hip pain (recently severe) , worse with activity, and achy and stiff at chelsey es in quality. He has failed conservative management. PmHx: .Hypertension, Hypercholesterolemia, Seizu re disorder ALLERGY: Allergies: No Known Allergies (Coded, 06/25/18) Home Medications: Home Medications: CARVEDILOL (COREG) 25 MG PO BID MEALS ATORVASTATIN (LIPITOR) 10 MG PO BEDTIME ZONISAMIDE (ZONEGRAN) 300 MG PO BID OXcarbazepine (TRILEPTAL) 300 MG PO TID MELOXICAM (MOBIC) 15 MG PO DAILY SgHx: .Knee arthroscopy, SHx: Tob: none FHx: .No significant hx of DVT/PE . Alcohol: none Drugs: none Lives: with brother ROS: [X] all systems reviewed and negative excep t- [ ] Con: . Fever/ Wt loss [ ] CV: cpain/edema. [ ] Pul: . cough/SOB [ ] GI: hematemesis/diarrhe a [ ] : . dysuria or hematuria [X] MS: hip pain [ ] Heme: . adenopathy/Ecchymosis Vitals: Vital Signs Date Temp Pulse Resp B/P B/P Mean Pulse Ox FiO2 02/04 96.8-97.7 58-83 12-18 105-156/59-92 99-10 6 97-100 Gen: Alert, in mild discomfort, nl nutrition. EYE: Nl lids conjunctiva. ENT: Nl ears Nose, nl lips,. Neck: Supple, nl thyroid, No masses. CV: Regular Rate Rhythm, no heave or significant murmur. Edema- none Feet toes normal temperature. RESP: Clear to Auscultation, normal Respiratory effort. ABD: Soft, NonDistended,. LYM: No significant cervical Lymphadenopathy. MS: No Clubbing, cyanosis, thigh is soft, dressi ng (ant) dry NEURO: Nonfocal, grossly normal sensation of LE, +Ankle DF/PF PSY: Normal insight, Normal mood, oriented, . Preop Labs (06/25/18): CBC:. Hgb 16.4, Plt 155, CHEM: Na 144, K 4.3, Cr 1.10(eGFR 72.4 %), . (medium to high risk of complications or morbidi ty) (major surgery) (IV sedative, meds) Assessment Plan 1.) Anemia of Acute Blood Loss- .will recheck 07/03/18. 2.) S/p Right AHR- .acute pain control. Anticoag ulation as per Dr. Lebron. 3.) Hypertension- .follow BP and hold Rxs if SBP <120. 4.) Seizure Disorder Hyperlipidemia- .continue o n Rx. Scott Patterson M.D. Thanks! at 1803 RPT #:[id number] END OF REPORT 2018-07-02 09:53:00-00:00 [facility] ([facility]) DT Operative Note REPORT#:[id number] REPORT STATUS: Signed DATE:07/02/18 TIME: 952 PATIENT: CHRIS MIRANDA UNIT #: [id number] ROOM/BED: [address] : [birth year] AGE: 43 SEX: M ATTEND: Xiomara Lebron MD ADM AUTHOR: Xiomara Lebron MD * ALL edits or amendments must be made on the [employer]/computer document * Operative Report Operative Note Note: ORTHO OP NOTE PATIENT NAME: Chris Miranda PATIENT : 71 DATE OF SURGERY: 07/02/18 PREOPERATIVE DIAGNOSIS: Right hip DJD POSTOPERATIVE DIAGNOSIS: same NAME OF PROCEDURE: Right anterior hip arthroplasty SURGEON: Xiomara Lebron MD EVALUATION ASSISTANT: Chiara AMBROSIO ANESTHESIA TYPE: TIVA ESTIMATED BLOOD LOSS: 300 ml FLUIDS: Per anesthesia record UOP: No Anderson Placed SPECIMENS: None DRAINS: None. IMPLANTS: Depuy Actis Size 4, Std Offset 54 mm Porocoat Shell with 0 screws +4N ALTRX liner for 36x54 +5 Size 36 mm Ceramic Head BLOOD PRODUCTS ADMINISTERED: None. WOUND CLASSIFICATION: Clean. FINDINGS: Severe DJD COMPLICATIONS: None. CONDITION: Stable, awake, extubated and taken to recovery w ithout complication. INDICATIONS: The patient is an 43 year-ol d male who presents with DJD of the right hip. They understood the risks and benefits of this anter ior hip replacment along with their standard risks of a total hip arth roplasty including infection, DVT, PE, failure of hardware, nerve damage, bleeding comp lications and elected to proceed. We will proceed with a total hip replac ement. TECHNIQUE: On day of operation, the anselmo ient was met in the preoperative area and marked the patient's operative leg in agreement with the terrance tient. The patient was then taken back to the operating room. A sign-in was performed to confirm we had the correct patient, we were working on the right leg, all equipment necessary was present. The patient was the n administered general anesthetic and placed supine on the Gilbert table. All extremities were appropri ately padded. Both legs were placed in the traction spars and the boots and l ocked in good position. The contralateral lower extremity was then templ ated using fluoroscopy and an overlay technique was used t o then translate to the operative hip. The operative lower extremity was then prepped and draped in a sterile manner. Time-out was performed to confirm we had the correct patient, we were working on the correct leg, all equipment necessary was present. Preope rative antibiotics have been given in addition to tranexa gerald acid. There were no concerns in the nursing team or the anesthesia team. X-rays were available. I then turned my attention to the patien t's right hip and approximately 4-inch incision was made approximately 1 cm dis que and 2 cm lateral to the ASIS. This was dissected down through t he fat to the level of fascia over the IT band. The IT band fascia was opened allowing me to dissect between the muscle and the fascia over it to palpate the lateral fe moral neck. Cobra retractor was placed over the lateral femoral neck followed by nery alvarenga of a Gelpi retractor distally with isolation and hemostasis achieved in the lateral circumflex vessels. This allowed me to then place a Cobra r etractor between the distal muscular interval along the inferior femoral neck. The capsule was split and an inverse T going along the intertrochanteric line after going down the femoral neck. It was released proximally and distally. T he hip was externally rotated allowing partial release of the pubofemo ral ligament and left the level of the lesser trochanter. The neck cut was then templat ed with fluoroscopy and a femoral neck osteotomy performed in a napkin rin g fashion with removal of the napkin ring and then the femoral head. There was severe wear on the femoral head appreciated. The hip wa s then turned 90 degrees external, which allowed me to complete release of the pubofemoral ligament and the superior hip capsule. The hip was then left at 45 external rotation wh ile we placed retractors anterior and posterior to the acetabulum, which allowed me to remove the remaining labrum and pulvinar tissues. There wer e severe degenerative changes present in the acetabulum. Subsequent reaming wa s taken to create a bony bleeding and good spherical shape in both anteri or, posterior and superior regions of the acetabulum ac hieving a good press fit with a 53-mm reamer, which then allowed me to impacted the [place] shell. The appropriate abduction and anteversion confirmed by flu oroscopy of 40 and 20 respectively with placement of 0 acetabular screws. The she ll was well fixed and well positioned and a +4 liner was impacted and confirmed to be locked into pos ition. The remaining superior capsule was relea sed In addition the piriformis tendon, which allowed me to then place a leg tricia k around the femur and elevate the leg with the traction spar by dropping the leg into extension and adduction. A Montes retractor was placed around the calcar a nd a Fang retractor over the greater trochanter. A box osteotome was used to enter the femoral canal finder followed by placing the smal lest size 0 broach. We then broached up sequentially until we achieved an excellent axial and rotational fit with the trial broach. Fluoroscopy confirmed, we were well posi tioned within the femoral canal and we restored the hip offset and length appropriately . Trial components were then removed followed by placement of the Actis stem in the appropriate position, which achieved excellent axi al and rotational stability and then based on where the previous stem sat, the trunnion was cleaned and dried and the femoral head was impacted onto the trunnion. The hip was then reduced without complication an d confirmed not impinged posteriorly in extension and an external rotatio n. The remaining capsule superiorly was closed back t o the intertrochanteric region. This was followed by copious irrigation infiltration of periarticular tissues with soft tissue anesthetic. This was followed by closure of the fascia with interrupted Vicryl sutures followed by running 0 PDS suture, follow ed by closure of the deep fat with 0 Vicryl suture followed by 2-0 Monocryl to close the subcutaneous layer and then closure of the skin with 3-0 monocryl a nd dermabond and Aquacel dressing. All needle and sponge counts were gera ect. I was present for all portions of the procedure. T he patient was awoken from anesthetic and taken back to recovery without complications. Due to the fact that I am no t part of a teaching program, no resident or fellow was available to assist with this procedure. Bot h my hands are necessary to perform this procedure. To that end Chiara AMBROSIO was employed as a surgical services asst. Their help was in valuable in creating proper exposure and protecting critical neurovascular structures. Specifically the PA's help is needed to retract the soft tissue away from the bone when cutting the femoral neck and also when reaming the acetabulum. Likewise retra ctors must be used to protect the tissues and neurovascular bundle when placin g the femoral and acetabular implants. Preparation of the bone and placement of the components requires both my hands and therefore an as sistant is needed to hold the 3 retractors needed to provide safe and appropriate exposure. FOLLOWUP: I spoke with the patient's family after procedur e and answered all questions. The patient will be weigh tbearing as tolerated with anterior hip precautions and pain control. DVT prophylaxis will b e aspirin. The patient will be seen by PT today. Xiomara Lebron MD at 1415 RPT #:[id number] END OF REPORT
[2022-11-09 19:06] LABS: Absolute Lymphocytes (CBC) 1.3 K/uL (0.7-4.9); Hematocrit 44.3 % (39.6-49.0); MCV 94.1 fL (80-100); MPV 9.4 fL (7.6-11.3); RBC Red Blood Cell Count 4.71 M/uL (4.33-5.43)
[2022-11-09 19:11] LABS: Potassium 4.1 mEq/L (3.5-5.1)
[2022-11-09 19:18] VITALS: BP 140/89; TEMP 97.6; O2SAT 96
== END 2022-11-09 19:06 | disposition home or self-care (01) ==
LOC: ER 18:34
DX: G40.909 Epilepsy, unspecified, not intractable, without status epilepticus (principal)
CPT/HCPCS: 36415; 80048; 85025; 99283

== ENCOUNTER 2024-05-25 14:57 | Emergency (ER) | payer OTHER ==
--- OUTSIDE RECORDS SUMMARY | 2024-05-25 15:01 | XMS REPORT | Continuity of Care Document ---
Author Name Unknown Address [address] [facility] [address] [place] [address] [facility] Address [address] [facility] [address] [place] [address] Care Team Providers Care Revenue Research Analyst Name Role Phone PADMINI DANIELSON Primary Care Physician Unavailab Joceline Buchanan Attending Clinician Unavailable Renato Bray Attending Clinician Unavailable Tere Beth Attending Clinician Unavailable KADNY ROTH Attending Clinician Unavailable LAB90 Attending Clinician Unavailable SHANDRA BOYER Attending Clinician Unavailab RACIEL Guillermo Attending Clinician Unavail able PADMINI DANIELSON Attending Clinician Unava ilSTEPHEN Stringer Attending Clinician Unavail able STEPHEN REID Attending Clinician Unavail Stephen Stringer MD Attending Clinician [phone] NIHARIKA SINGH Attending Clinician Unavailable ANJEL FELICIANO Attending Clinician Unavailable Padmini Danielson MD Attending Clinician [phone] Doctor Unassigned, Sherrill Attending Clinician U BRANDEE Frazier Attending Clinician Unavailable Payers Payer Name Policy Type Policy Number Effective Date Expirati on Date Source [employer] TXP CLASSIC NO PREMIUM R2T [id number] 2023 00:00:00 [employer] MP [facility] 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 9 [id number] 2024 00:00:00 Problems Condition Name Condition Details Condition Category Status Onset Date Resolution Date Last Treatment Date Treating Clinician Comments Source Right hip pain Right hip pain Disease Active 2023-05 00:00: 00 Desiree Seybold - Externa l Well adult exam Well adult exam Disease Active 02-15 00:00: 00 Desiree Seybold - Externa l Class 1 obesity due to excess calories with serious comorbidit y and body mass index (BMI) of 32.0 to 32.9 in adult Class 1 obesity due to excess calories with serious comorbidit y and body mass index (BMI) of 32.0 to 32.9 in adult Disease Active 11-15 00:00: 00 Desiree Seybold - Externa l Class 1 obesity due to excess calories with serious comorbidit y and body mass index (BMI) of 32.0 to 32.9 in adult Class 1 obesity due to excess calories with serious comorbidit y and body mass index (BMI) of 32.0 to 32.9 in adult Disease Active 11-15 00:00: 00 Desiree Seybold - Externa l Primary hypertensi on Primary hypertensi on Disease Active 09-29 00:00: 00 Desiree Seybold - Externa l Seizure disorder (HCC) - Unchanged Seizure disorder (HCC) - Unchanged Disease Active 09-29 00:00: 00 Desiree Seybold - Externa l Hyperlipid emia Hyperlipid emia Disease Active 09-29 00:00: 00 Desiree Seybold - Externa l Cataract Cataract Disease Active Kel lashonda Seybold - Externa l Family history of diabetes mellitus in mother Family history of diabetes mellitus in mother Disease Active Desiree Seybold - Externa l No known active problems No known active problems Disease [facility] Allergies, Adverse Reactions, Alerts Allergy Name Allergy Type Status Severity Reaction(s) Onset Date Inactive Date Treating Clinician Comments Source No Known Allergie s DA Active U 06-25 00:00: 00 [facility] NO KNOWN ALLERGIE S Drug Class Active [facility] Social History Social Habit Start Date Stop Date Quantity Comments Source History of Occupation Desiree Sanchez - External Gender identity Tonya Sanchez - External Sexual orientation Marnie Sanchez - External Alcoholic beverage intake 2024-04-01 00:00:00 2024-04-01 00:00:00 Lifetime non-drinker (finding) Desiree Sanchez - External Alcohol intake 2023-02-15 00:00:00 2023-02-15 00:00:00 Lifetime non-drinker (finding) Desiree Sanchez - External History of Social function 2023-02-13 00:00:00 2023-02-13 00:00:00 Desiree izabella - External Education 2022-11-15 00:00:00 2022-11-15 00:00:00 16 Desiree Sanchez - External Exposure to SARS-CoV-2 (event) 2021-10-09 00:00:00 2021-10-19 10:24:00 Not sure [facility] Tobacco use and exposure 2021-09-29 00:00:00 2021-09-29 00:00:00 Smokeless tobacco non-user Desiree Sanchez - External Sex 2021-09-21 08:36:16 2021-09-21 08:36:16 Male (finding) Desiree Sanchez - External Sex assigned at 1975 00:00:00 1975 00:00:00 Desiree Ellingtonsaradiana - External Smoking Status Start Date Stop Date Source Never smoked tobacco Desiree Sesaradiana - External Medications Ordered Medication Name Filled Medication Name Start Date Stop Date Current Medication? Ordering Clinician Indication Dosage Frequency Signature (SIG) Comments Components Source Meloxicam 15 MG oral Tablet 02-22 00:00: 00 Yes 15mg QD take 1 tablet by mouth every day as needed for pain Desiree Sanchez - Externa l Oxcarbazepi ne 300 MG oral Tablet 01-21 00:00: 00 Yes [id number] 900mg [id number] 3D Take 3 tablets (900 mg total) by mouth 3 times daily. Desiree Sanchez - Externa l Atorvastati n Calcium 10 MG oral Tablet 11-21 00:00: 00 Yes [id number] 10mg TAKE 1 TABLET BY MOUTH EVERY DAY IN THE EVENING Desiree gutierrez Carvedilol 25 MG oral Tablet 0 6-26 00:00: 00 Yes [id number] 25mg Q.5D TAKE 1 TABLET (25 MG TOTAL) BY MOUTH 2 TIMES DAILY. Desiree gutierrez Enalapril Maleate 10 MG oral Tablet 6-26 00:00: 00 Yes [id number] 10mg QD TAKE 1 TABLET BY MOUTH EVERY DAY Desiree gutierrez Oxcarbazepi ne 300 MG oral Tablet 4-03 00:00: 00 Yes [id number] 900mg Take 3 tablets (900 mg total) by mouth 3 times daily. Desiree gutierrez Meloxicam 15 MG oral Tablet 3-07 00:00: 00 Yes 15mg QD Take 1 tablet (15 mg total) by mouth daily as needed for pain. Desiree gutierrez Zonisamide 100 MG oral Capsule 3-01 00:00: 00 Yes [id number] TAKE 3 CAPSULES BY MOUTH TWICE A DAY. Desiree gutierrez Oxcarbazepi ne 300 MG oral Tablet 8-03 00:00: 00 Yes [id number] 900mg Take 3 tablets (900 mg total) by mouth 3 times daily Desiree gutierrez Meloxicam 15 MG oral Tablet 7-31 00:00: 00 Yes 15mg Take 1 tablet (15 mg total) by mouth daily Desiree gutierrez Zonisamide 100 MG oral Capsule 6-26 00:00: 00 Yes [id number] TAKE 3 CAPSULES BY MOUTH TWICE A DAY Desiree gutierrez Carvedilol 25 MG oral Tablet 6-20 00:00: 00 Yes [id number] 25mg Take 1 tablet (25 mg total) by mouth 2 times daily Desiree gutierrez Atorvastati n Calcium 10 MG oral Tablet 6-20 00:00: 00 Yes [id number] 10mg Take 1 tablet (10 mg total) by mouth every evening Desiree gutierrez Enalapril Maleate 10 MG oral Tablet 2023-0 6-20 00:00: 00 Yes [id number] 10mg Take 1 tablet (10 mg total) by mouth daily Desiree gutierrez Oxcarbazepi ne 300 MG oral Tablet 0 6-12 00:00: 00 Yes [id number] 900mg Take 3 tablets (900 mg total) by mouth 3 times daily Desiree gutierrez Zonisamide 100 MG oral Capsule 0 8-22 00:00: 00 Yes [id number] TAKE 3 CAPSULES BY MOUTH TWICE A DAY Desiree gutierrez Atorvastati n Calcium 10 MG oral Tablet 0 7-15 00:00: 00 11-15 00:00 :00 No 10mg Take 1 tablet (10 mg total) by mouth every evening Desiree gutierrez Zonisamide 100 MG oral Capsule 2021-0 6-02 00:00: 00 Yes [id number] TAKE 3 CAPSULES BY MOUTH TWICE A DAY Desiree Sanchez Oxcarbazepi ne 300 MG oral Tablet 0 6-02 00:00: 00 Yes [id number] Take 3 tablets by mouth 3 times daily Desiree Sanchez Oxcarbazepi ne 300 MG oral Tablet 0 5-31 00:00: 00 10-28 00:00 :00 No Take 3 tablets by mouth 3 times daily Desiree Sanchez Zonisamide 100 MG oral Capsule 2021-0 5-31 00:00: 00 10-28 00:00 :00 No TAKE 3 CAPSULES BY MOUTH TWICE A DAY Desiree Sanchez Zonisamide 100 MG oral Capsule 2021-0 4-16 00:00: 00 Yes TAKE 3 CAPSULES BY MOUTH TWICE A DAY Desiree Sanchez zonisamide 100 mg capsule 2021-0 4-15 00:00: 00 Yes [id number] TAKE 3 CAPSULES BY MOUTH TWICE A DAY [facility] OXcarbazepi ne 300 mg tablet 2021-0 4-15 00:00: 00 Yes [id number] Take 3 tablets by mouth 3 times daily [facility] Enalapril Maleate 10 MG oral Tablet 2021-0 3-16 00:00: 00 11-15 00:00 :00 No 10mg Take 1 tablet (10 mg total) by mouth daily FOR HIGH BLOOD PRESSURE Desiree Daniel gutierrez Carvedilol 25 MG oral Tablet 07-26 00:00: 00 Yes 1{tbl} Take 1 tablet by mouth in the morning and 1 tablet in the evening. Desiree Sanchez Carvedilol 25 MG oral Tablet 07-26 00:00: 00 11-15 00:00 :00 No 25mg Take 1 tablet (25 mg total) by mouth 2 times daily Desiree gutierrez Meloxicam 15 MG oral Tablet 2- 00:00: 00 Yes 15mg Take 1 tablet (15 mg total) by mouth daily Desiree gutierrez Atorvastati n Calcium 10 MG oral Tablet 2-14 00:00: 00 Yes 10mg Take 10 mg by mouth every evening Desiree Sanchez carvedilol 25 mg tablet 9 00:00: 00 Yes TAKE 1 TABLET BY MOUTH TWICE A DAY [facility] atorvastati n 10 mg tablet 8- 00:00: 00 Yes TAKE 1 TABLET BY MOUTH IN THE EVENING [facility] meloxicam 15 mg tablet 8 00:00: 00 Yes TAKE 1/2 TO 1 TABLET BY MOUTH NEEDED FOR PAIN (WITH FOOD) ONCE DAILY [facility] Vital Signs Vital Name Observation Time Observation Value Comments S ource Systolic blood pressure 2024-04-01 16:01:00 116 mm[Hg] Desiree hughes - External Diastolic blood pressure 2024-04-01 16:01:00 72 mm[Hg] Desiree hughes - External Heart rate 2024-04-01 16:01:00 69 /min Ron Sanchez - External Body temperature 2024-04-01 16:01:00 36.67 Stephanie Desiree Sanchez - External Body height 2024-04-01 16:01:00 185.4 cm Tonya Sanchez - External Body weight 2024-04-01 16:01:00 114.306 kg Tonya Sanchez - External BMI 2024-04-01 16:01:00 33.25 kg/m2 Tonya ey Seybold - External Oxygen saturation in Arterial blood by Pulse oximetry 2024-04-01 16:01:00 96 /min Desiree Seybo ld - External Systolic blood pressure 2023-09-29 14:47:00 135 mm[Hg] Desiree Seybo ld - External Diastolic blood pressure 2023-09-29 14:47:00 84 mm[Hg] Desiree Seybo ld - External Heart rate 2023-09-29 14:47:00 67 /min Kelse y Seybold - External Body temperature 2023-09-29 14:47:00 36.5 Stephanie Desiree Seybold - External Respiratory rate 2023-09-29 14:47:00 15 /min Desiree Seybold - External Body height 2023-09-29 14:47:00 185.4 cm Tonya ey Seybold - External Body weight 2023-09-29 14:47:00 112.492 kg Tonya ey Seybold - External BMI 2023-09-29 14:47:00 32.72 kg/m2 Tonya ey Seybold - External Oxygen saturation in Arterial blood by Pulse oximetry 2023-09-29 14:47:00 100 /min Desiree Ellingtonybo ld - External Systolic blood pressure 2023-02-15 15:16:00 136 mm[Hg] Desiree Seybo ld - External Diastolic blood pressure 2023-02-15 15:16:00 83 mm[Hg] Desiree Ellingtonybo ld - External Heart rate 2023-02-15 15:16:00 67 /min Aldense y Seybold - External Body temperature 2023-02-15 15:16:00 37.06 Stephanie Desiree Seybold - External Respiratory rate 2023-02-15 15:16:00 14 /min Desiree Seybold - External Body height 2023-02-15 15:16:00 185.4 cm Tonya ey Seybold - External Body weight 2023-02-15 15:16:00 111.585 kg Tonya ey Seybold - External BMI 2023-02-15 15:16:00 32.46 kg/m2 Tonya ey Seybold - External Oxygen saturation in Arterial blood by Pulse oximetry 2023-02-15 15:16:00 99 /min Desiree Seybo ld - External Systolic blood pressure 2022-11-15 20:46:00 122 mm[Hg] Desiree Seybo ld - External Diastolic blood pressure 2022-11-15 20:46:00 74 mm[Hg] Desiree Seybo ld - External Heart rate 2022-11-15 20:46:00 72 /min Kelse y Seybold - External Body temperature 2022-11-15 20:46:00 36.89 Stephanie Desiree Seybold - External Respiratory rate 2022-11-15 20:46:00 14 /min Desiree Seybold - External Body height 2022-11-15 20:46:00 185.4 cm Tonya ey Seybold - External Body weight 2022-11-15 20:46:00 113.399 kg Tonya ey Seybold - External BMI 2022-11-15 20:46:00 32.98 kg/m2 Tonya ey Seybold - External Oxygen saturation in Arterial blood by Pulse oximetry 2022-11-15 20:46:00 99 /min Desiree Seybo ld - External Systolic blood pressure 2021-10-28 20:16:00 120 mm[Hg] Desiree Seybo ld Diastolic blood pressure 2021-10-28 20:16:00 68 mm[Hg] Desiree Seybo ld Heart rate 2021-10-28 20:16:00 79 /min Kelse y Seybold Body temperature 2021-10-28 20:16:00 36.89 Stephanie Desiree Seybold Respiratory rate 2021-10-28 20:16:00 16 /min Desiree Seybold Body height 2021-10-28 20:16:00 185.4 cm Tonya ey Seybold Body weight 2021-10-28 20:16:00 107.049 kg Tonya ey Seybold BMI 2021-10-28 20:16:00 31.14 kg/m2 Tonya ey Seybold Systolic blood pressure 2021-09-29 16:08:00 124 mm[Hg] Desiree Seybo ld Diastolic blood pressure 2021-09-29 16:08:00 72 mm[Hg] Desiree Seybo ld Heart rate 2021-09-29 16:08:00 59 /min Kelse y Seybold Body temperature 2021-09-29 16:08:00 36.56 Stephanie Desiree Sanchez Respiratory rate 2021-09-29 16:08:00 14 /min Desiree Sanchez Body height 2021-09-29 16:08:00 185.4 cm Tonya Sanchez Body weight 2021-09-29 16:08:00 106.777 kg Tonya Sanchez BMI 2021-09-29 16:08:00 31.06 kg/m2 Tonya Sanchez Encounters Start Date/Time End Date/Time Encounter Type Admission Type Attending [facility] Care Department Encounter ID Source 2023-03-06 09:43:00 Outpatient Joceline Linda STLMLC STLC [id number] [facility] 2022-05-05 07:22:00 Outpatient Joceline Linda STLMLC STLMLC [id number] [facility] 2022-01-27 09:38:00 Outpatient Joceline Linda STLMLC STLMLC [id number] [facility] 2022-01-24 14:00:00 Outpatient Joceline Linda STLMLC STLMLC [id number] [facility] 2022-01-21 09:45:00 Outpatient Joceline Linda STLMLC STLMLC [id number] [facility] 2022-01-20 15:21:00 Outpatient Joceline Linda STLMLC STLMLC [id number] [facility] 2022-01-19 08:10:00 Outpatient Joceline Linda STLMLC STLMLC [id number] [facility] 2021-06-23 13:43:01 Outpatient Joceline Linda STLMLC STLMLC [id number] [facility] 2021-06-23 12:36:56 Outpatient Joceline Linda STLMLC STLMLC [id number] [facility] 2021-06-23 12:34:48 Outpatient Joceline Linda STLMLC STLC [id number] [facility] 2021-06-23 12:15:38 Outpatient STANDERSONLC STLMLC [id number] [facility] 2021-06-23 12:03:09 Outpatient Renato Bray STLMLC STLMLC [id number] [facility] 2021-06-23 11:59:12 Outpatient Renato Bray STLMLC STLC [id number] [facility] 2021-06-23 11:57:31 Outpatient Tere Beth STLMLC STLC [id number] [facility] 2021-06-23 11:18:31 Outpatient Tere Beth STLC STLC [id number] [facility] 2021-06-23 11:17:59 [facility] [id number] [facility] 2024-09-30 09:30:00 2024-09-30 09:30:00 Outpatient IRA KANDY YOUNGBLOOD [id number] [facility] 2024-04-18 00:00:00 2024-04-18 00:00:00 Outpatient PRELEONARDO KANDY YOUNGBLOOD [id number] [facility] 2024-04-16 08:05:00 2024-04-16 08:05:00 Outpatient LAB90 DESIREE YOUNGBLOOD [id number] [facility] 2024-04-10 00:00:00 2024-04-10 00:00:00 Outpatient KANDY ROTH [id number] Desiree [facility] 2024-04-01 10:00:00 2024-04-01 10:00:00 Outpatient KANDY ROTH [id number] Desiree [facility] 2024-03-29 10:00:00 2024-03-29 10:00:00 Outpatient KANDY ROTH [id number] [facility] 2024-02-21 00:00:00 2024-02-21 00:00:00 Outpatient PREZAS, KANDY YOUNGBLOOD DESIREE [id number] Desiree Seybold 2024-01-28 00:00:00 2024-01-28 00:00:00 Outpatient PREZAS, KANDY YOUNGBLOOD DESIREE [id number] Desiree Seybold 2024-01-19 00:00:00 2024-01-19 00:00:00 Outpatient PREZAS, KANDY YOUNGBLOOD DESIREE [id number] Desiree Seybold 2023-11-25 00:00:00 2023-11-25 00:00:00 Outpatient PREZAS, KANDY YOUNGBLOOD DESIREE [id number] Desiree Seybold 2023-11-20 00:00:00 2023-11-20 00:00:00 Outpatient PREZAS, KANDY YOUNGBLOOD DESIREE [id number] Desiree Seybold 2023-10-17 00:00:00 2023-10-17 00:00:00 Outpatient PREZAS, KANDY YOUNGBLOOD DESIREE [id number] Desiree Seybold 2023-10-16 00:00:00 2023-10-16 00:00:00 Outpatient PREZAS, KANDY YOUNGBLOOD DESIREE [id number] Desiree Seybold 2023-09-29 10:00:00 2023-09-29 10:00:00 Outpatient PREZAS, KANDY SPRAGUEMARYA YOUNGBLOOD [id number] Desiree Seybold 2023-08-30 00:00:00 2023-08-30 00:00:00 Outpatient PREZAS, KANDY YOUNGBLOOD DESIREE [id number] Desiree Seybold 2023-08-16 10:15:00 2023-08-16 10:15:00 Outpatient PREZAS, KANDY DESIREE YOUNGBLOOD [id number] Desiree Seybold 2023-08-07 00:00:00 2023-08-07 00:00:00 Outpatient EURE SHANDRA YOUNGBLOOD [id number] Desiree Seybold 2023-08-07 00:00:00 2023-08-07 00:00:00 Outpatient EURE SHANDRA YOUNGBLOOD [id number] Desiree Seybold 2023-08-04 00:00:00 2023-08-04 00:00:00 Outpatient RACIEL BUTTS DESIREE YOUNGBLOOD [id number] [facility] 2023-08-02 00:00:00 2023-08-02 00:00:00 Outpatient PREZAS, KANDY DESIREE YOUNGBLOOD [id number] [facility] 2023-07-28 00:00:00 2023-07-28 00:00:00 Outpatient PREZAS, KANDY DESIREE YOUNGBLOOD [id number] [facility] 2023-05-23 00:00:00 2023-05-23 00:00:00 Outpatient PREZAS, KANDY DESIREE YOUNGBLOOD [id number] [facility] 2023-02-16 00:00:00 2023-02-16 00:00:00 Outpatient PREZAS, KANDY DESIREE YOUNGBLOOD [id number] [facility] 2023-02-15 11:15:00 2023-02-15 11:15:00 Outpatient LAB90 DESIREE YOUNGBLOOD [id number] [facility] 2023-02-15 10:15:00 2023-02-15 10:15:00 Outpatient PREZAS, KANDY DES[facility]REE [facility]NGBLOOD [id number] [facility]23-02-09 00:00:00 2023-02-09 00:00:00 Outpatient PADMINI DANIELSON [id number] [facility] 2022-12-29 00:00:00 2022-12-29 00:00:00 Outpatient PADMINI DANIELSON [id number] [facility] 2022-12-26 00:00:00 2022-12-26 00:00:00 Outpatient PREZAS, KANDY DESIREE YOUNGBLOOD [id number] [facility] 2022-12-26 00:00:00 2022-12-26 00:00:00 Outpatient PREZAS, KANDY DESIREE YOUNGBLOOD [id number] [facility] 2022-12-09 08:00:00 2022-12-09 08:00:00 Outpatient LAB90 DESIREE YOUNGBLOOD [id number] Desiree [facility] 2022-12-01 00:00:00 2022-12-01 00:00:00 Outpatient PREZAS, KANDY YOUNGBLOOD DESIREE [id number] Desiree Sanchez 2022-11-30 00:00:00 2022-11-30 00:00:00 Outpatient ERUMPADMINI HENNESSY DESIREE YOUNGBLOOD [id number] [facility] 2022-11-21 00:00:00 2022-11-21 00:00:00 Outpatient PREZAS, KANDY SPRAGUEMARYA YOUNGBLOOD [id number] [facility] 2022-11-18 00:00:00 2022-11-18 00:00:00 Outpatient ERUM, PADMINI DESIREE YOUNGBLOOD [id number] [facility] 2022-11-18 00:00:00 2022-11-18 00:00:00 Outpatient PREZAS, KANDY DESIREE YOUNGBLOOD [id number] Desiree [facility] 2022-11-18 00:00:00 2022-11-18 00:00:00 Brook Reid [facility] .[id number] [id number] [facility] 2022-11-17 00:00:00 2022-11-17 00:00:00 Outpatient PREZAS, KANDY SPRAGUEMARYA YOUNGBLOOD [id number] Desiree [facility] 2022-11-16 00:00:00 2022-11-16 00:00:00 Outpatient PADMINI DANIELSON DESIREE YOUNGBLOOD [id number] Desiree [facility] 2022-11-15 16:00:00 2022-11-15 16:00:00 Outpatient PREZAS, KANDY DESIREE YOUNGBLOOD [id number] Desiree [facility] 2022-11-08 00:00:00 2022-11-08 00:00:00 Refill [facility] .[id number] [id number] [id number] [facility] 2022-11-07 00:00:00 2022-11-07 00:00:00 Stephen Traivs [facility]?LALACOUNTS INCLUDE 234 BEDS AT THE [facility] OFFICE [address].840.114 350.1.13.10 [id number] [id number] [facility] 2022-11-05 00:00:00 2022-11-05 00:00:00 Outpatient PADMINI DANIELSON [id number] [facility] 2022-11-05 00:00:00 2022-11-05 00:00:00 Outpatient PADMINI DANIELSON [id number] [facility] 2022-11-03 00:00:00 2022-11-03 00:00:00 Refill Stephen Reid [facility] [id number] 350.1.13.10 [id number] [id number] [facility] 2022-11-02 00:00:00 2022-11-02 00:00:00 Outpatient PADMINI DANIELSON [id number] [facility] 2022-09-16 00:00:00 2022-09-16 00:00:00 [facility] [id number] [facility] 11:20:00 2022-03-16 11:20:00 Outpatient NIHARIKA HILL [facility] [id number] [facility] 2022-02-21 00:00:00 2022-02-21 00:00:00 Outpatient KANDY ROTH [id number] Desiree [facility] 2022-02-04 13:30:00 2022-02-04 13:30:00 Outpatient KANDY ROTH [id number] Desiree [facility] 2022-01-28 00:00:00 2022-01-28 00:00:00 Outpatient KANDY ROTH [id number] Desiree [facility] 2021-11-22 15:40:00 2021-11-22 15:40:00 Outpatient ANJEL FELICIANO DESIREE YOUNGBLOOD [id number] Desiree [facility] 2021-11-19 14:45:00 2021-11-19 14:45:00 Outpatient ERUMPADMINI DESIREE YOUNGBLOOD [id number] Desiree [facility] 2021-11-18 00:00:00 2021-11-18 00:00:00 Outpatient ERUMPADMINI HENNESSY DESIREE YOUNGBLOOD [id number] Desiree [facility] 2021-11-02 00:00:00 2021-11-02 00:00:00 Outpatient ERUM PADMINI YOUNGBLOOD [id number] Desiree [facility] 2021-11-02 00:00:00 2021-11-02 00:00:00 Outpatient ERUM PADMINI YOUNGBLOOD [id number] [facility] 2021-10-28 15:15:00 2021-10-28 15:45:00 Office Visit Padmini Danielsonkrunal Mears [id number] 350.1.13.13 [id number] [id number] [facility] 2021-10-26 00:00:00 2021-10-26 00:00:00 Telephone [facility] [id number] 350.1.13.10 [id number] [id number] [facility] 2021-10-26 00:00:00 2021-10-26 00:00:00 Telephone [facility]ORA?[facility] [id number] 350.1.13.10 [id number] [id number] [facility] 2021-10-26 00:00:00 2021-10-26 00:00:00 Refill [facility] 1..840.114 350.1.13.10 [id number] [id number] [facility] 2021-10-24 00:00:00 2021-10-24 00:00:00 [facility] 1..840.114 350.1.13.10 [id number] [id number] [facility] 2021-10-19 10:40:00 2021-10-19 10:40:00 Outpatient STEPHEN MENDOZA HOWARD [facility] [id number] [facility] 2021-10-19 10:40:00 2021-10-19 10:40:00 Outpatient STEPHEN MENDOZA HOWARD [facility] [id number] [facility] 2021-10-19 00:00:00 2021-10-19 00:00:00 Outpatient PADMINI DANIELSON [id number] [facility] 2021-10-18 00:00:00 2021-10-18 00:00:00 Outpatient PADMINI DANIELSON [id number] [facility] 2021-10-14 00:00:00 2021-10-14 00:00:00 Telephone Stephen Reid [facility] DORA?[facility] 1..840.114 350.1.13.10 4.2.7.2.686 [id number] [facility] 2021-10-14 00:00:00 2021-10-14 00:00:00 [facility] 1..840.114 [id number] [facility] 2021-10-08 09:20:00 2021-10-08 09:20:00 Outpatient STEPHEN MENDOZA [facility] [id number] [facility] 2021-10-07 00:00:00 2021-10-07 00:00:00 Outpatient PADMINI DANIELSON DESIREE DESIREE [id number] Desiree Sanchez 2021-10-06 00:00:00 2021-10-06 00:00:00 Orders Only Doctor Unassigned, Sherrill [facility] 1.2.840.114 350.1.13.10 4.2.7.2.686 [id number] [facility] 2021-10-05 00:00:00 2021-10-05 00:00:00 Outpatient ERUMPADMINI HENNESSY DESIREE YOUNGBLOOD [id number] Desiree Sanchez 2021-10-05 00:00:00 2021-10-05 00:00:00 Telephone Stephen Reid [facility] 1.2.840.114 350.1.13.10 4.2.7.2.686 [id number] [facility] 2021-09-29 11:00:00 2021-09-29 11:30:00 Office Visit Erum Padminitian Gonzalez Mears 1.2.840.114 350.1.13.13 1.2.7.2.686 [id number] [facility] 2021-09-27 11:00:00 2021-09-27 11:20:00 Office Visit Stephen Reid [facility] 1.2.840.114 350.1.13.10 4.2.7.2.686 [id number] [facility] 2021-09-27 11:00:00 2021-09-27 11:00:00 Outpatient STEPHEN MENDOZA HOWARD [facility] [id number] [facility] 2021-09-27 11:00:00 2021-09-27 11:00:00 Outpatient STEPHEN EMNDOZA HOWARD [facility] [id number] [facility] 2021-09-27 00:00:00 2021-09-27 00:00:00 Telephone Stephen Reid [facility] DORA?[facility] 1.2.840.114 350.1.13.10 4.2.7.2.686 [id number] [facility] 2021-09-22 00:00:00 2021-09-22 00:00:00 RefStephen Donohue [facility] DORA?[facility] 1.2.840.114 350.1.13.10 4.2.7.2.686 [id number] [facility] 2021-09-20 00:00:00 2021-09-20 00:00:00 [facility] 1.2.840.114 350.1.13.10 4.2.7.2.686 [id number] [facility] 2021-09-19 00:00:00 2021-09-19 00:00:00 Stephen Pittman [facility] NAL BUILDING 1.2.840.114 350.1.13.10 4.2.7.2.686 [id number] [facility] 2021-09-10 00:00:00 2021-09-10 00:00:00 Stephen Pittman [facility] DORA?[facility] 1.2.840.114 350.1.13.10 4.2.7.2.686 [id number] [facility] 2021-09-10 00:00:00 2021-09-10 00:00:00 [facility] AT [facility] BU[facility] 1.2.840.114 350.1.13.10 4.2.7.2.686 [id number] [facility] 2021-06-28 00:00:00 2021-06-28 00:00:00 Henrietta Franklin [facility] BUILDING 1.2.840.114 350.1.13.10 4.2.7.2.686 [id number] [facility] 2021-06-28 00:00:00 2021-06-28 00:00:00 [facility] 1.2.840.114 350.1.13.10 4.2.7.2.686 [id number] [facility] 2021-03-12 00:00:00 2021-03-12 00:00:00 Mimithreesa ReidStephen [facility] Building 1.2.840.114 350.1.13.10 4.2.7.2.686 [id number] [facility] 2020-10-07 08:10:00 2020-10-07 08:10:00 Outpatient BRANDEE ROSA [facility] [id number] [facility] 2020-09-16 08:10:00 2020-09-16 08:10:00 Outpatient BRANDEE ROSA [facility] [id number] [facility] 2020-08-03 14:20:00 2020-08-03 14:20:00 Outpatient STEPHEN MENDOZA HOWARD [facility] [id number] [facility] 2019-08-02 09:40:00 2019-08-02 09:40:00 Outpatient STEPHEN MENDOZA HOWARD [facility] [id number] [facility] Results Test Description Test Time Test Comments Results Resul t Comments Source - XR PELVIS 1/2 VIEWS 2018-07-03 11:04:00 Patient Name: MICHELL MOSS Unit No: [id number] EXAMS: CPT CODE: [id number] XR PELVIS 1/2 VIEWS 79774 AP PORTABLE RIGHT HIP COMMENT: The patient is status post joint placement which is articulating normally. at 1104 Reported and signed by: Tyler Alvarado MD CC: Xiomara Lebron MD Technologist: ASAD MATA (RT.R) Transcribed D/ (1104) tANABEL [facility] NAME: MICHELL MOSS [address] [facility] PHYS: Xiomara Bueno : 1975 AGE: 43 SEX: M [place] [address] LOC: Y.320 A PHONE #: [phone] EXAM DATE: 07/02/2018 STATUS: ADM IN FAX #: [phone] RAD #: D/C DT PAGE 1 Signed Report Patient Name: MICHELL MOSS Unit No: [id number] EXAMS: CPT CODE: [id number] XR PELVIS 1/2 VIEWS 39959 (Continued) Orig Print D/T: S: 07/03/2018 (1108) [facility] NAME: MICHELL MOSS [address] [facility] PHYS: PATTIAN. Xiomara Lebron : 1975 AGE: 43 SEX: M [place] [address] LOC: Y.320 A PHONE #: [phone] EXAM DATE: 07/02/2018 STATUS: ADM IN FAX #: [phone] RAD #: D/C DT PAGE 2 Signed Report HGB [id number] 06:00:00* Test Item Value Reference Range Interpretation Comme nts HEMOGLOBIN (test code = HGB) 14.6 g/dL 12-16 N HEMATOCRIT (test code = HCT) 44.2 % 37-47 N GLYCOSYLATED HEMOGLOBIN (HA1C)2018-06-25 22:44:00* Test Item Value Reference Range Interpretation Comme nts GLYCOSYLATED HEMOGLOBIN (HA1C) (test code = GLYHGB) 4.9 % 4.8-5.9 N Any conditi on that shortens erythocyte survival or decreasesmean erythrocyte age (e.g., recovery from acute blood loss,hemolytic anemai) will falsely lower HGBA1c resultsregardless of the method used. HGBA1c results frompatients with HbSS, HbCC and HbSc must be interpreted withcaution given the pathological processes, including anemia,increased red cell turnover, transfusion requirements, thatadversely impact HGBA1c as a marker of long-term glycemiccontrol. Alternative forms of testing such as fructosamineshould be considered for these patients.DONE AT: [facility] [address] [facility] [facility], [place] [address] URINALYSIS [id number] 17:54:00* Test Item Value Reference Range Interpretation Comme nts UA COLOR (test code = COLU) YELLOW YELLOW UA APPEARANCE (test code = APPU) CLEAR CLEAR UA GLUCOSE DIPSTICK (test co de = DGLUU) NEGATIVE NEGATIVE UA BILIRUBIN DIPSTICK (test code = BILU) NEG NEGATIVE UA KETONE DIPSTICK (test cod e = KETU) NEG mg/dL NEGATIVE UA SPECIFIC GRAVITY (test co de = SGU) 1.025 1.003-1.035 UA BLOOD DIPSTICK (test code = KIRSTIE) NEG NEGATIVE UA PH DIPSTICK (test code = GUERO) 6.0 >6.5 UA PROTEIN DIPSTICK (test co de = PROU) NEG mg/dL NEG UA UROBILINIOGEN DIPSTICK (t est code = URO) 0.2 mg/dL NORM UA NITRITE DIPSTICK (test co de = GANGA) NEG NEG UA LEUKOCYTE ESTERASE DIPSTI CK (test code = LEUU) NEG NEGATIVE UA WBC (test code = WBCU) 0-2 /HPF 0-2 UA RBC (test code = RBCU) 0-2 /HPF 0-2 UA EPITHELIAL CELLS (test co de = EPIU) RARE /HPF 0-2 UA BACTERIA (test code = BACU) FEW /HPF NONE COMPREHENSIVE METABOLIC [id number] 15:16:00* Test Item Value Reference Range Interpretation Comme nts SODIUM (test code = NA) 144 mmol/L 136-145 N POTASSIUM (test code = K) 4.3 mmol/L 3.5-5.1 N CHLORIDE (test code = CL) 109.0 mmol/L 98-107 H CARBON DIOXIDE (test code = CO2) 22.6 mmol/L 21-32 N GLUCOSE (test code = GLU) 88 mg/dL 70-110 N BLOOD UREA NITROGEN (test code = BUN) 22 mg/dL 7-18 H GLOMERULAR FILTRATION RATE (test code = GFR) 72.4 >60 Unit of m easure: mL/min/1.73 [id number] Range:Healthy Adults >90 mL/min/1.73 m2 For Chronic Kidney Disease: Stage II Mild Decrease in GFR 60-90 Stage III Moderate Decrease in GFR 30-59 Stage IV Severe Decrease in GFR 15-29 Stage V Kidney Failure <15 CREATININE (test code = CREAT) 1.10 mg/dL 0.55-1.30 N TOTAL PROTEIN (test code = PROT) 7.2 g/dL 6.4-8.2 N ALBUMIN (test code = ALB) 4.2 g/dL 3.4-5.0 N GLOBULIN (test code = GLOB) 3.0 g/dL 2.2-4.2 N ALBUMIN/GLOBULIN RATIO (test code = A/G) 1.4 0.7-2.0 N CALCIUM (test code = CA) 8.8 mg/dL 8.2-10.1 N BILIRUBIN TOTAL (test code = BILT) 0.37 mg/dL 0.2-1.00 N SGOT/AST (test code = AST) 18.0 U/L 15-37 N SGPT/ALT (test code = ALT) 35.0 U/L 12-78 N Please note new normal range. ALKALINE PHOSPHATASE TOTAL (test code = ALKP) 100 U/L 46-116 N GLYCOSYLATED HEMOGLOBIN (HA1C)2018-06-25 15:16:00* Test Item Value Reference Range Interpretation Comme nts GLYCOSYLATED HEMOGLOBIN (HA1 C) (test code = GLYHGB) % 4.8-5.9 PROTHROMBIN [id number] 12:37:00* Test Item Value Reference Range Interpretation Comme nts PROTHROMBIN TIME PATIENT (test code = PTP) 12.4 secs 10.1-12.5 N INTERNATIONAL NORMAL RATIO (test code = INR) 1.10 <2.0 RECOMMENDED THER APEUTIC RANGE FOR ORAL ANTICOAGULANTTREATMENT: CONDITION INRProphylaxis of venous thrombosis in 2.0 - 3.0 high-risk medical or surgical patientsTreatment of venous thrombosis 2.0 - 3.0Prevention of embolism 2.0 - 3.0Prevention of recurrent embolism, or 3.0 - 4.5 patients with mechanical prosthetic intravascular valves IS PATIENT ON ANTICOAGULANTS ? [facility] been notified if Patient is on Heparin Drip? NOTHROMBOPLASTIN TIME [id number] 12:37:00* Test Item Value Reference Range Interpretation Comme nts PTT ACTIVATED (test code = APTT) 28.6 secs 24.9-37.0 N IS PATIENT ON ANTICOAGULANTS ? [facility] been notified if Patient is on Heparin Drip? NOCBC W/AUTO [id number] 12:20:00* Test Item Value Reference Range Interpretation Comme nts WHITE BLOOD CELL (test code = WBC) [...] 27-34 N MEAN CELL HGB CONCENTRATION (test code = MCHC) 33.4 g/dL 30.8-34.1 N RED CELL DISTRIBUTION WIDTH (test code = RDW) 13.3 % 11-16 N PLT (test code = PLT) 155 K/mm3 130-400 N MEAN PLATELET VOLUME (test c ode = MPV) 11.4 fL 8.9-12.1 N NEUTROPHIL % (test code = NT%) 64.8 [...] K/mm3 0.02-0.10 N MANUAL DIFF REQUIRED (test c ode = MDIFF) NO MANUAL DIFF NUCLEATED RED BLOOD CELL (te st code = NRBC) 0 % 0-0 N
[2024-05-25] MEDS ORDERED: LEVETIRACETAM 500 MG/5 ML VIAL IV ONE (15:23)
[2024-05-25] MEDS ORDERED: LORazepam 2 MG/ML VIAL ONE (15:23)
[2024-05-25] MEDS ORDERED: NA CHLORIDE 0.9% 1,000 ML ONE (15:24)
[2024-05-25 15:32] LABS: Absolute Eosinophils 0.3 K/uL (0-0.5); Absolute Monocytes 0.7 K/uL (0.1-1.3); Absolute Neutrophil 4.4 K/uL (1.8-8.0); Basophils % 0.6 % (0-1.3); Eosinophils % 4.3 % (0-4.4); Hematocrit 45.7 % (39.6-49.0); Hemoglobin 15.1 g/dL (13.6-17.9); Lymphocytes % 16.1 % (15.3-44.8); MCH 31.9 pg (27.0-35.0); MCV 96.7 fL (80-100); MPV 9.4 fL (7.6-11.3); Nucleated Red Blood Cells % 0.2 % (0-0); Platelets 140 thou/uL (152-406); RBC Red Blood Cell Count 4.73 M/uL (4.33-5.43); Red Cell Distribution Width 14.1 % (12.1-15.2)
[2024-05-25 15:33] LABS: PT Prothrombin Time 11.9 SECONDS (9.4-12.5); Protime INR 1.06
[2024-05-25 15:47] LABS: ALT/SGPT 28 U/L (16-61); AST/SGOT 16 U/L (15-37); Albumin 3.5 g/dL (3.4-5.0); Albumin/Globulin Ratio 1.1 (1.1-1.8); Alkaline Phosphatase 106 U/L (45-117); Anion Gap 7.8 mEq/L (5.0-15.0); BUN Blood Urea Nitrogen 20 mg/dL (7-18); Bicarbonate 21 mEq/L (21-32); Bilirubin Total 0.3 mg/dL (0.2-1.0); Globulin 3.2 g/dL (2.3-3.5); Glomerular Filtration Rate 61 ml/min (=/>90); Glucose Level 123 mg/dL (74-106); Lipase 45 U/L (13-75); NT PRO-BNP 26 pg/mL (<125); Potassium 3.8 mEq/L (3.5-5.1); Protein, Total 6.7 g/dL (6.4-8.2); Sodium Level 142 mEq/L (136-145); Troponin High Sensitivity 5.3 pg/mL (<58.9)
[2024-05-25 15:51] LABS: Bilirubin Direct < 0.2 mg/dL (0-0.2); Bilirubin Indirect, Calculated 0.1 mg/dL (0.2-0.8)
--- NOTE | 2024-05-25 15:55 | RAD REPORT ---
EXAM: Chest Single View HISTORY: COUGH COMPARISON: None. FINDINGS: LUNGS/PLEURA: The lungs are clear. No pleural effusions or pneumothorax. No pulmonary edema. MEDIASTINUM: The mediastinal silhouette is within normal limits. CARDIAC: Within normal limits. UPPER ABDOMEN: No significant abnormality. BONES: No acute fracture. LINES/TUBES/OTHER: N/A IMPRESSION: No evidence of acute cardiopulmonary disease.
--- NOTE | 2024-05-25 17:38 | RAD REPORT ---
EXAMINATION: CT HEAD WITHOUT CONTRAST CT CERVICAL SPINE WITHOUT CONTRAST CLINICAL INDICATION: Male, 49 years old. SEIZURE TECHNIQUE: Axial CT images from the skull base to the vertex without intravenous contrast. Axial CT i mages through the cervical spine were obtained without intravenous contrast. Sagittal and coronal reformatted images were created from the data set. Coronal and sagittal reformatted images were creat ed from the data set. One or more of the following dose reduction techniques were used: Automated exposure control, adjustment of the mA and/or kV according to patient size, and/or iterative reconstr uction. Unless otherwise specified, incidental findings do not require dedicated imaging follow-up. [id number]. COMPARISON: No prior exam. FINDINGS: Head: INTRACRANIAL: No acute intracranial hemorrhage. No hydrocephalus. No mass effect or midline shift. No significant white matter disease. VASCULATURE: No visualized abnormalities in the arteries or dural venous sinuses. SCALP/SKULL: No significant soft tissue or osseous abnormalities. Postoperative changes at the left o ccipital calvarium. SINUSES: Mucosal thickening in the left maxillary sinus. Cervical spine: ALIGNMENT: The cervical spine has normal alignment without scoliosis or spondylolisthesis. BONE: Vertebral body heights are maintained. No aggressive osseous lesions. DEGENERATIVE CHANGES: None significant. SOFT TISSUE: No significant abnormalities in the soft tissue of the neck. The visualized lung apices are clear. IMPRESSION: No acute intracranial abnormality. No acute fracture or traumatic malalignment of the cervical spine.
--- NOTE | 2024-05-25 18:49 | EDPHYS ---
Physician Documentation [facility] Name: Chris Miranda Age: 49 yrs Sex: Male : 1975 Arrival Date: 05/25/2024 Time: 14:57 Bed DX3 Private MD: ED Physician Charles Kasper HPI: 05/25 18:42 This 49 yrs old Male presents to ER via EMS with complaints of Seizure. carlos 18:42 The patient presents after having a single isolated seizure, that lasted an unknown carlos period of time. Character of seizure(s): Loss of consciousness: it is not known if the patient experienced loss of consciousness, Motor activity: generalized, Incontinence: none, Apnea: the patient did not experience apnea, Circulation: the patient did not experience evidence of pulse disturbance. Seizure onset: just prior to arrival. Context: the seizure(s) was witnessed, by a bystander, occurred outdoors, occurred while the patient was walking. Seizure Hx: Cause: unknown, Last seizure: The patient's last seizure was approximately 2 day(s) ago. Associated injury: The patient did not suffer any apparent associated injury. Current symptoms: Currently, the patient is not experiencing any symptoms, the patient feels back to baseline. The patient has experienced similar episodes in the past, multiple times. Historical: - Allergies: 15:28 No Known Allergies; bp - PMHx: 15:28 Seizure; bp - Immunization history:: Adult Immunizations unknown. - Infectious Disease History:: Denies. - Social history:: Smoking status: unknown. - Family history:: not pertinent. ROS: 18:42 Constitutional: Negative for fever, chills, and weight loss, Eyes: Negative for injury, carlos pain, redness, and discharge, ENT: Negative for injury, pain, and discharge, Neck: Negative for injury, pain, and swelling, Cardiovascular: Negative for chest pain, palpitations, and edema, Respiratory: Negative for shortness of breath, cough, wheezing, and pleuritic chest pain, Abdomen/GI: Negative for abdominal pain, nausea, vomiting, diarrhea, and constipation, Back: Negative for injury and pain, : Negative for injury, bleeding, discharge, and swelling, MS/Extremity: Negative for injury and deformity, Skin: Negative for injury, rash, and discoloration, Psych: Negative for depression, anxiety, suicide ideation, homicidal ideation, and hallucinations, Allergy/Immunology: Negative for hives, rash, and allergies, Endocrine: Negative for neck swelling, polydipsia, polyuria, polyphagia, and marked weight changes, Hematologic/Lymphatic: Negative for swollen nodes, abnormal bleeding, and unusual bruising, 18:42 Neuro: Positive for seizure activity, Exam: 18:42 Constitutional: This is a well developed, well nourished patient who is awake, alert, carlos and in no acute distress. Eyes: Pupils equal round and reactive to light, extra-ocular motions intact. Lids and lashes normal. Conjunctiva and sclera are non-icteric and not injected. Cornea within normal limits. Periorbital areas with no swelling, redness, or edema. ENT: Nares patent. No nasal discharge, no septal abnormalities noted. Tympanic membranes are normal and external auditory canals are clear. Oropharynx with no redness, swelling, or masses, exudates, or evidence of obstruction, uvula midline. Mucous membranes moist. Neck: Trachea midline, no thyromegaly or masses palpated, and no cervical lymphadenopathy. Supple, full range of motion without nuchal rigidity, or vertebral point tenderness. No Meningismus. Chest/axilla: Normal chest wall appearance and motion. Nontender with no deformity. No lesions are appreciated. Cardiovascular: Regular rate and rhythm with a normal S1 and S2. No gallops, murmurs, or rubs. Normal PMI, no JVD. No pulse deficits. Respiratory: Lungs have equal breath sounds bilaterally, clear to auscultation and percussion. No rales, rhonchi or wheezes noted. No increased work of breathing, no retractions or nasal flaring. Abdomen/GI: Soft, non-tender, with normal bowel sounds. No distension or tympany. No guarding or rebound. No evidence of tenderness throughout. Back: No spinal tenderness. No costovertebral tenderness. Full range of motion. Male : Normal genitalia with no discharge or lesions. MS/ Extremity: Pulses equal, no cyanosis. Neurovascular intact. Full, normal range of motion., bilateral aka Neuro: Awake and alert, GCS 15, oriented to person, place, time, and situation. Cranial nerves II-XII grossly intact. Motor strength 5/5 in all extremities. Sensory grossly intact. Cerebellar exam normal. Normal gait. Psych: Awake, alert, with orientation to person, place and time. Behavior, mood, and affect are within normal limits. 18:42 Head/face: Noted is abrasion(s), that are mild, of the right jainism, 18:42 ECG was reviewed by the Attending Physician. Vital Signs: 15:00 BP 138 / 77; Pulse 88; Resp 16; Temp 98; Pulse Ox 97% ; bp 16:31 BP 132 / 80; Pulse 83; Resp 16; Pulse Ox 100% ; bp 18:58 BP 141 / 75; Pulse 79; Resp 16; Pulse Ox 99% ; bp Chantal Coma Score: 15:28 Eye Response: spontaneous(4). Motor Response: obeys commands(6). Verbal Response: bp oriented(5). Total: 15. MDM: 15:04 Medical Screening Exam initiated carlos 18:45 Differential diagnosis: cerebral vascular accident, drug overdose, cardiac arrhythmia, carlos seizure, TIA. Data reviewed: vital signs, nurses notes, EMS record, lab test result(s), EKG, radiologic studies, CT scan, plain films. Consideration of Admission/Observation Escalation of care including admission/observation considered. I considered the following discharge prescriptions or medication management in the emergency department Medications were administered in the Emergency Department. See MAR. Independent interpretation of the following test(s) in the Emergency Department EKG: See my EKG interpretation above. Test considered but Not performed: MRI: NO MRI BRAIN. Historians other than the Patient: EMS: EMS WELL INFORMED. Care significantly affected by the following chronic conditions: SEIZURE DO. Counseling: I had a detailed discussion with the patient and/or guardian regarding the historical points, exam findings, and any diagnostic results supporting the discharge/admit diagnosis, lab results, radiology results, the need for outpatient follow up, for definitive care, a family practitioner, a neurologist. 05/25 15:06 Order name: Basic Metabolic Panel; Complete Time: 18:41 carlos 05/25 15:06 Order name: CBC with Diff; Complete Time: 18:41 carlos 05/25 15:06 Order name: LFT's; Complete Time: 18:41 carlos 05/25 15:06 Order name: Magnesium; Complete Time: 18:41 carlos 05/25 15:06 Order name: NT PRO-BNP; Complete Time: 18:41 carlos 05/25 15:06 Order name: PT-INR; Complete Time: 18:41 [facility] 05/25 15:06 Order name: Troponin HS; Complete Time: 18:41 [facility] 05/25 15:06 Order name: Lipase; Complete Time: 18:41 [facility] 05/25 15:06 Order name: XRAY Chest (1 view); Complete Time: 18:41 [facility] 05/25 15:07 Order name: CT Head C Spine; Complete Time: 18:41 [facility] 05/25 15:06 Order name: Cardiac monitoring; Complete Time: 15: [facility] 05/25 15:06 Order name: EKG - Nurse/Tech; Complete Time: 16:07 [facility] 05/25 15:06 Order name: IV Saline Lock; Complete Time: 15: [facility] 05/25 15:06 Order name: Labs collected and sent; Complete Time: 15: [facility] 05/25 15:06 Order name: O2 Per Protocol; Complete Time: 15: [facility] 05/25 15:06 Order name: O2 Sat Monitoring; Complete Time: 15: [facility] 05/25 15:06 Order name: Seizure Precautions; Complete Time: 15:31 [facility] EC:42 Rate is 83 beats/min. Rhythm is regular. QRS [place] is Normal. [place] interval is normal. QRS carlos interval is normal. QT interval is normal. No Q waves. No ST changes noted. Clinical impression: NSR w/ Non-specific ST/T Changes and No evidence of ischemia. Interpreted by me. Reviewed by me. Administered Medications: 15:31 Drug: NS 0.9% IV 1000 ml IV at 1000 ml once; to be given as a bolus over 60 minutes bp Route: IV; Rate: 1000 ml; Site: right forearm; 19:01 Follow up: IV Status: Completed infusion bp 15:31 Drug: Ativan IVP 2 mg IVP once Route: IVP; Site: right forearm; bp 19:01 Follow up: Response: No adverse reaction bp 15:31 Drug: Keppra IV 2000 mg IV at per protocol once Route: IV; Rate: per protocol; Site: bp right forearm; 19:01 Follow up: IV Status: Completed infusion bp Disposition Summary: 05/25/24 18:48 Discharge Ordered Notes: Location: Home carlos Problem: new carlos Symptoms: have improved carlos Condition: Stable carlos Diagnosis - Epileptic seizures related to external causes, not intractable, 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 - Abrasion of unspecified part of head - RIGHT FACE carlos Followup: carlos - With: Private Physician - When: 2 - 3 days - Reason: Recheck today's complaints, Continuance of care, Re-evaluation by your physician Followup: carlos - With: Eros Lerma MD - When: 2 - 3 days - Reason: Recheck today's complaints, Continuance of care, Re-evaluation by your physician Discharge Instructions: - Discharge Summary Sheet carlos - Epilepsy carlos - Seizure, Adult carlos - Seizure, Adult, Ozrb-uz-Pajp carlos - Epilepsy, Maqb-mp-Onip carlos Forms: - Medication Reconciliation Form carlos - Antibiotic Education carlos - Prescription Opioid Use carlos - Patient Portal Instructions carlos - Leadership Thank You Letter [facility] Prescriptions: - Keppra 500 mg Oral Tablet - take 1 tablet ORAL route every 12 hours; 20 tablet; Refills: 0, Product carlos Selection Permitted Signatures: Dispatcher [employer] EDCharles Serrano MD MD cha Peltier, Brian, RN RN bp Corrections: (The following items were deleted from the chart) 15:07 15:07 BASIC METABOLIC PANEL+C.LAB.BRZ ordered. EDMS EDMS 15:07 15:07 CBC+H.LAB.BRZ ordered. EDMS EDMS 15:07 15:07 HEPATIC FUNCTION+C.LAB.BRZ ordered. EDMS EDMS 15:07 15:07 MAGNESIUM+C.LAB.BRZ ordered. EDMS EDMS 15:07 15:07 PROBNP+C.LAB.BRZ ordered. EDMS EDMS 15:07 15:07 PROTIME (+INR)+COAG.LAB.BRZ ordered. EDMS EDMS 15:07 15:07 Troponin High Sensitivity+C.LAB.BRZ ordered. EDMS EDMS 15:07 15:07 Urinalysis+U.LAB.BRZ ordered. EDMS EDMS 15:07 15:07 LIPASE+C.LAB.BRZ ordered. EDMS EDMS 15:07 15:07 Chest Single View+RAD.RAD.BRZ ordered. EDMS EDMS
--- NOTE | 2024-05-25 18:49 | ER ---
Nurse's Notes [facility] Name: Chris Miranda Age: 49 yrs Sex: Male : 1975 Arrival Date: 05/25/2024 Time: 14:57 Bed DX3 Private MD: Diagnosis: Epileptic seizures related to external causes, not intractable, without status epilepticus;Abrasion of unspecified part of head-RIGHT FACE Presentation: 05/25 15:00 Chief complaint: EMS states: [facility] ON [address]. Coronavirus screen: At this time, the bp client does not indicate any symptoms associated with coronavirus-19. Ebola Screen: No symptoms or risks identified at this time. Initial Sepsis Screen: Does the patient meet any 2 criteria? No. Patient's initial sepsis screen is negative. Does the patient have a suspected source of infection? No. Patient's initial sepsis screen is negative. Risk Assessment: Do you want to hurt yourself or someone else? Patient reports no desire to harm self or others. Onset of symptoms was May 25, 2024 at 14:00. 15:00 Method Of Arrival: EMS: [facility] bp 15:00 Acuity: NUHA 3 bp Triage Assessment: 15:28 General: Appears in no apparent distress. Behavior is calm, cooperative, appropriate bp for age. Pain: Denies pain. EENT: No deficits noted. Neuro: Level of Consciousness is awake, alert, obeys commands, Oriented to person, place, time, situation, Appropriate for age. Cardiovascular: No deficits noted. Respiratory: No deficits noted. GI: No signs and/or symptoms were reported involving the gastrointestinal system. : No signs and/or symptoms were reported regarding the genitourinary system. Derm: No deficits noted. Musculoskeletal: No deficits noted. Historical: - Allergies: 15:28 No Known Allergies; bp - PMHx: 15:28 Seizure; bp - Immunization history:: Adult Immunizations unknown. - Infectious Disease History:: Denies. - Social history:: Smoking status: unknown. - Family history:: not pertinent. Screenin:29 [facility] ED Fall Risk Assessment (Adult) History of falling in the last 3 months, bp including since admission Yes- physiologic fall (2 pts) Confusion or Disorientation No (0 pts) Intoxicated or Sedated No (0 pts) Impaired Gait No (0 pts) Mobility Assist Device Used No (0 pt) Altered Elimination No (0 pt) Score/Fall Risk Level 0 - 2 = Low Risk Oriented to surroundings. Abuse screen: Denies threats or abuse. Denies injuries from another. Nutritional screening: No deficits noted. Tuberculosis screening: No symptoms or risk factors identified. Assessment: 15:29 General: Appears in no apparent distress. Behavior is calm, cooperative, appropriate bp for age. Injury Description: Abrasion sustained to face. 15:53 Reassessment: point of contact, friend: Landry Caraballo [phone]. 16:31 Reassessment: Patient appears in no apparent distress at this time. Patient and/or bp family updated on plan of care and expected duration. Pain level reassessed. Patient states symptoms have improved. 18:59 Reassessment: DC WITH TAXI. bp Vital Signs: 15:00 BP 138 / 77; Pulse 88; Resp 16; Temp 98; Pulse Ox 97% ; bp 16:31 BP 132 / 80; Pulse 83; Resp 16; Pulse Ox 100% ; bp 18:58 BP 141 / 75; Pulse 79; Resp 16; Pulse Ox 99% ; bp Chantal Coma Score: 15:28 Eye Response: spontaneous(4). Motor Response: obeys commands(6). Verbal Response: bp oriented(5). Total: 15. ED Course: 15:02 Patient arrived in ED. ss 15:04 Jeronimo Michael, RN is Primary Nurse. bp 15:04 Charles Kasper MD is Attending Physician. carlos 15:28 Triage completed. bp 15:28 Arm band placed on. bp 15:29 Patient has correct armband on for positive identification. bp 15:29 No provider procedures requiring assistance completed. bp 15:30 Seizure precautions initiated. bp 15:30 Initial lab(s) drawn, by ut, sent to lab. Inserted saline lock: 20 gauge in right bp forearm, using aseptic technique. Blood collected. Flushed with 10 mL NS. 15:53 XRAY Chest (1 view) In Process Unspecified. EDMS 16:12 Lindsay will come pickling grader the patient if he needs a ride/ her cell number is [phone]. 17:20 CT Head C Spine In Process Unspecified. EDMS 18:48 Eros Lerma MD is Referral Physician. carlos 19:00 IV discontinued, intact, bleeding controlled, No redness/swelling at site. Pressure bp dressing applied. Administered Medications: 15:31 Drug: NS 0.9% IV 1000 ml IV at 1000 ml once; to be given as a bolus over 60 minutes bp Route: IV; Rate: 1000 ml; Site: right forearm; 19:01 Follow up: IV Status: Completed infusion bp 15:31 Drug: Ativan IVP 2 mg IVP once Route: IVP; Site: right forearm; bp 19:01 Follow up: Response: No adverse reaction bp 15:31 Drug: Keppra IV 2000 mg IV at per protocol once Route: IV; Rate: per protocol; Site: bp right forearm; 19:01 Follow up: IV Status: Completed infusion bp Medication: 15:29 VIS not applicable for this client. bp Outcome: 18:48 Discharge ordered by . [facility] 19:00 Discharged to home ambulatory, bp 19:00 Condition: stable 19:00 Discharge instructions given to patient, Instructed on discharge instructions, follow up and referral plans. medication usage, Demonstrated understanding of instructions, follow-up care, medications, Prescriptions given X 1, 19:00 Patient left the ED. bp Signatures: Dispatcher [employer] EDMS Charles Kasper MD MD cha Blanchard, Shelby, RN RN Jeronimo Rubalcava RN RN Cindy Cordova
[2024-05-25 20:31] VITALS: TEMP 98
[2024-05-25 20:34] VITALS: BP 141/75; O2SAT 99
--- NOTE | 2024-05-27 11:13 | EKG ---
Test Date: 2024-05-25 Test Time: 15:55:25 Architectural Technologist: LOUIE MEASUREMENT RESULTS: Intervals: Rate: 83 NE: 154 QRSD: 80 QT: 368 QTc: 432 Loop: P: 56 NE: 154 QRS: -51 T: 75 INTERPRETIVE STATEMENTS: Normal sinus rhythm Left axis deviation Abnormal ECG Compared to ECG 03/08/1996 19:59:00 Left-axis deviation now present Sinus tachycardia no longer present Electronically Signed On 05-27-24 11:09:52 BRUSH MACHINE SETTER by Primo Roblero
== END 2024-05-25 19:00 | disposition home or self-care (01) ==
LOC: ER 14:57
DX: G40.509 Epileptic seizures related to external causes, not intractable, without status epilepticus (principal); S00.81XA Abrasion of other part of head, initial encounter
CPT/HCPCS: 96365; 93005; 85025; 80048; 36415; 83735; 85610; 80076; 84484; 83690; 83880; 70450; 72125; 71045; 96375; 99284; 96366; J1953; J7030